=== PATIENT | male | born 1940 | race Caucasian/White ===

== ENCOUNTER 2017-05-11 17:23 | Emergency (ER) | payer MEDICARE ==
--- NOTE | 2017-05-11 17:44 | ER Document Report ---
ED Fall - General Chief Complaint: Fall Stated Complaint: FALL Time Seen by Provider: 05/11/17 17:40 Mode of Arrival: Stretcher Information source: Patient, Emergency Med Personnel - [facility] Patient complains to provider of: Recurrent falls Where: Home Context: Tripped Associated symptoms: None Quality of pain: No pain Notes: Patient is a 77-year-old male brought to the emergency room by EMS for frequent falls, apparently patient and moved down from [place] 2 months ago, because they thought that they would have more assistance with care at home, however it is reported by EMS that the is concerned that patient keeps falling at home and they do not have any in-home services to assist, and she is unsure whether she will be available to care for patient at home in the long- term, patient has a history of Alzheimer's disease so detailed information is difficult to obtain from him, however he denies any pain complaints at time of my initial evaluation, and I see no signs of any obvious serious trauma Past Medical History - General Information source: Patient - Social History Smoking Status: Unknown if Ever Smoked Family History: Reviewed & Not Pertinent Review of Systems - Review of Systems Constitutional: No symptoms reported EENT: No symptoms reported Cardiovascular: No symptoms reported Respiratory: No symptoms reported Gastrointestinal: No symptoms reported Genitourinary: No symptoms reported Male Genitourinary: No symptoms reported Musculoskeletal: No symptoms reported Skin: No symptoms reported Hematologic/Lymphatic: No symptoms reported Neurological/Psychological: No symptoms reported -: Yes All other systems reviewed and negative Physical Exam - Vital signs Interpretation: Normal - General General appearance: Appears well, Alert - HEENT Head: Normocephalic, Atraumatic Eyes: Normal Pupils: PERRL - Respiratory Respiratory status: No respiratory distress Chest status: Nontender Breath sounds: Normal Chest palpation: Normal - Cardiovascular Rhythm: Regular Heart sounds: Normal auscultation Murmur: No - Abdominal Inspection: Normal Distension: No distension Bowel sounds: Normal Tenderness: Nontender Organomegaly: No organomegaly - Back Back: Normal, Nontender - Extremities General upper extremity: Normal inspection, Nontender, Normal color, Normal ROM , Normal temperature General lower extremity: Normal inspection, Nontender, Normal color, Normal ROM , Normal temperature, Normal weight bearing. No: Mele's sign - Neurological Neuro grossly intact: Yes Cognition: Normal Orientation: AAOx4 Abdi Coma Scale Eye Opening: Spontaneous [place] Coma Scale Verbal: Oriented [place] Coma Scale Motor: Obeys Commands Abdi Coma Scale Total: 15 Speech: Normal Motor strength normal: LUE, RUE, LLE, RLE Sensory: Normal - Psychological Associated symptoms: Normal affect, Normal mood - Skin Skin Temperature: Warm Skin Moisture: Dry Skin Color: Normal Course - Re-evaluation Re-evalutation: 05/11/17 23:07 Patient has evidence of hyperglycemia on lab work, otherwise completely normal lab and physical exam findings, as patient does not meet any criteria for admission to the hospital at this point in time, therefore transport arrangements will be made for him to return home, with instructions to follow- up with primary care provider for assistance with either home health nurse or placement in a care facility if family is unable to care for him at home, I did also provide him with information to contact our social work nurse for assistance with this and made a referral to the social work office to call patients how and provide assistance with support services - Laboratory Result Diagrams: 05/11/17 18:15 05/11/17 18:15 Laboratory results interpreted by me: 05/11/17 05/11/17 05/11/17 18:15 19:16 19:43 ABG pO2 68.3 L ABG HCO3 26.5 H ABG Total CO2 27.8 H ABG O2 Saturation 93.8 L Glucose 371 H Urine Glucose (UA) >=500 H - Diagnostic Test Radiology reviewed: Image reviewed, Reports reviewed - EKG Interpretation by Me EKG shows normal: Sinus rhythm Rate: Normal Rhythm: NSR Discharge - Discharge Clinical Impression: Frequent falls, Hyperglycemia Condition: Stable Disposition: HOME, SELF-CARE Instructions: Hyperglycemia ([facility]) Additional Instructions: Follow up with your primary care provider in one to 2 days. Return to the emergency room immediately if symptoms worsen or any additional concerns. If patient is unable to be cared for properly at home environment then you should follow-up with your primary care provider and requested a referral be made to assisted living or nursing home facility for further care. The emergency room is unable to make such referrals or requests for you. If you should require assistance with this process you can call our social work nurse oYny Donaldson at [phone].
[2017-05-11 18:31] LABS: ABSOLUTE BASOPHILS # (AUTO) 0.1 10^3/uL (0.0-0.2); ABSOLUTE EOSINOPHILS # (AUTO) 0.1 10^3/uL (0.0-0.6); ABSOLUTE LYMPHOCYTES (AUTO) 1.9 10^3/uL (0.5-4.7); ABSOLUTE MONOCYTES (AUTO) 0.5 10^3/uL (0.1-1.4); ABSOLUTE NEUT (AUTO) 3.4 10^3/uL (1.7-8.2); BASOPHILS % (AUTO) 1.1 % (0-2); EOSINOPHILS % (AUTO) 1.9 % (0-6); HEMATOCRIT 41.5 % (37.9-51.0); HEMOGLOBIN 14.2 g/dL (13.5-17.0); HGB HCT DIFFERENCE 1.1; LYMPHOCYTES % (AUTO) 31.2 % (13-45); MEAN CORPUSCULAR HEMOGLOBIN 32.5 pg (27.0-33.4); MEAN CORPUSCULAR HGB CONC 34.2 g/dL (32.0-36.0); MEAN CORPUSCULAR VOLUME 95 fl (80-97); RED BLOOD COUNT 4.36 10^6/uL (4.35-5.55); RED CELL DISTRIBUTION WIDTH 13.3 % (11.5-14.0); SEGMENTED NEUTROPHILS % (AUTO) 56.8 % (42-78); WHITE BLOOD COUNT 5.9 10^3/uL (4.0-10.5)
--- NOTE | 2017-05-11 18:33 | RADIOLOGY REPORT (SQ) ---
EXAM DESCRIPTION: CHEST PA/LAT COMPLETED DATE/TIME: 05/11/2017 6:12 pm REASON FOR STUDY: fall COMPARISON: None. EXAM PARAMETERS: NUMBER OF VIEWS: two views TECHNIQUE: Digital Frontal and Lateral radiographic views of the chest acquired. RADIATION DOSE: NA LIMITATIONS: none FINDINGS: LUNGS AND PLEURA: No opacities, masses or pneumothorax. No pleural effusion. MEDIASTINUM AND HILAR STRUCTURES: No masses or contour abnormalities. HEART AND VASCULAR STRUCTURES: Heart normal size. No evidence for failure. BONES: No acute findings. HARDWARE: Sternotomy wires. Surgical clips. OTHER: No other significant finding. IMPRESSION: NO SIGNIFICANT RADIOGRAPHIC FINDING IN THE CHEST. TECHNICAL DOCUMENTATION: JOB ID: [id number] [employer]- All Rights Reserved
[2017-05-11 18:56] LABS: ALANINE AMINOTRANSFERASE 36 U/L (21-72); ALBUMIN 4.1 g/dL (3.5-5.0); ALKALINE PHOSPHATASE 65 U/L (38-126); ANION GAP 11 (5-19); ASPARTATE AMINO TRANSFERASE 27 U/L (17-59); BILIRUBIN,DIRECT 0.3 mg/dL (0.0-0.4); BILIRUBIN,TOTAL 0.6 mg/dL (0.2-1.3); BLOOD UREA NITROGEN 17 mg/dL (7-20); CALCIUM 9.6 mg/dL (8.4-10.2); CARBON DIOXIDE 30 mmol/L (22-30); CHLORIDE 98 mmol/L (98-107); CREATININE RESULT 0.78 mg/dL (0.52-1.25); GLUCOSE 371 mg/dL (75-110); POTASSIUM 4.7 mmol/L (3.6-5.0); SODIUM 138.5 mmol/L (137-145)
[2017-05-11] MEDS ORDERED: NORMAL SALINE 1000 ML 1,000 ML IV PRN (19:01)
[2017-05-11 19:49] LABS: APPEARANCE,URINE CLEAR; BILIRUBIN,URINE NEGATIVE (NEGATIVE); GLUCOSE, URINE >=500 mg/dL (NEGATIVE); KETONES,URINE NEGATIVE (NEGATIVE); LEUKOCYTE ESTERASE,URINE NEGATIVE (NEGATIVE); NITRITE,URINE NEGATIVE (NEGATIVE); PROTEIN,URINE NEGATIVE (NEGATIVE); URINE SPECIFIC GRAVITY 1.029; UROBILINOGEN,URINE NEGATIVE mg/dL (<2.0)
[2017-05-11 20:06] LABS: ARTERIAL BLOOD BASE EXCESS 1.6 mmol/L; ARTERIAL BLOOD O2 SATURATION 93.8 % (94-98)
--- NOTE | 2017-05-11 23:20 | EKG REPORT ---
SEVERITY:- BORDERLINE ECG - SINUS RHYTHM SHORT ME INTERVAL, ACCELERATED AV CONDUCTION LEFT AXIS DEVIATION LOW VOLTAGE IN FRONTAL LEADS : Confirmed by: Malcom Tee 11-May-2017 23:19:28
[2017-05-12 00:01] VITALS: BP 132/70
== END 2017-05-11 22:21 | disposition home or self-care (01) ==
LOC: ER 17:23
DX: R73.9 Hyperglycemia, unspecified (principal); W19.XXXA Unspecified fall, initial encounter; Z91.81 History of falling; G30.9 Alzheimer's disease, unspecified; F02.80 Dementia in other diseases classified elsewhere, unspecified severity, without behavioral disturbance, psychotic disturbance, mood disturbance, and anxiety
CPT/HCPCS: 93005; 99284; 96360; 82803; 85025; 80053; 81001; 71020; 93010; J7030

== ENCOUNTER 2017-05-13 15:56 | Emergency (ER) | payer MEDICARE ==
[2017-05-13 17:25] LABS: ABSOLUTE BASOPHILS # (AUTO) 0.1 10^3/uL (0.0-0.2); ABSOLUTE EOSINOPHILS # (AUTO) 0.1 10^3/uL (0.0-0.6); ABSOLUTE LYMPHOCYTES (AUTO) 1.8 10^3/uL (0.5-4.7); ABSOLUTE MONOCYTES (AUTO) 0.5 10^3/uL (0.1-1.4); ABSOLUTE NEUT (AUTO) 3.6 10^3/uL (1.7-8.2); BASOPHILS % (AUTO) 1.2 % (0-2); EOSINOPHILS % (AUTO) 1.4 % (0-6); HEMATOCRIT 44.2 % (37.9-51.0); HEMOGLOBIN 15.2 g/dL (13.5-17.0); HGB HCT DIFFERENCE 1.4; LYMPHOCYTES % (AUTO) 29.3 % (13-45); MEAN CORPUSCULAR HEMOGLOBIN 32.2 pg (27.0-33.4); MEAN CORPUSCULAR HGB CONC 34.3 g/dL (32.0-36.0); MEAN CORPUSCULAR VOLUME 94 fl (80-97); MONOCYTES % (AUTO) 8.5 % (3-13); RED BLOOD COUNT 4.71 10^6/uL (4.35-5.55); RED CELL DISTRIBUTION WIDTH 13.4 % (11.5-14.0); SEGMENTED NEUTROPHILS % (AUTO) 59.6 % (42-78)
[2017-05-13 17:32] LABS: VENOUS BLOOD BASE EXCESS 1.4 mmol/L; VENOUS BLOOD HCO3 25.3 mmol/L (20-32); VENOUS BLOOD PCO2 37.9 mmHg (35-63); VENOUS BLOOD PH 7.44 (7.30-7.42)
[2017-05-13 17:49] LABS: ANION GAP 14 (5-19); BLOOD UREA NITROGEN 14 mg/dL (7-20); CARBON DIOXIDE 28 mmol/L (22-30); CHLORIDE 97 mmol/L (98-107); CREATININE RESULT 0.84 mg/dL (0.52-1.25); GLUCOSE 370 mg/dL (75-110); POTASSIUM 4.8 mmol/L (3.6-5.0); SODIUM 138.8 mmol/L (137-145)
[2017-05-13] MEDS ORDERED: LORAZEPAM 1 MG TABLET PO ONE (18:20)
--- NOTE | 2017-05-13 18:20 | ER Document Report ---
ED General - General Chief Complaint: Other Stated Complaint: ALTERED MENTAL STATUS Time Seen by Provider: 05/13/17 16:08 TRAVEL OUTSIDE OF THE U.S. IN LAST 30 DAYS: No - HPI Patient complains to provider of: Dementia Notes: Patient was brought in for further evaluation of dementia. According to EMS patient has a history of dementia and became slightly combative with his today. Patient otherwise is confused at bedside states patient is otherwise in his normal state states that his been more difficult for her to handle him at home states that today patient did become aggressive with her however did not assault her. states that she is been working with PCP to place the patient. Our social work team is already been involved and notified. Patient otherwise was not compliant with his diabetic medication today does have elevated blood sugar. He has no complaints otherwise delightfully confused. Patient easily directed back to his bed whenever he walks out. - Related Data Allergies/Adverse Reactions: No Known Allergies Allergy (Unverified 05/13/17 16:37) Past Medical History - Social History Smoking Status: Unknown if Ever Smoked Chew tobacco use (# tins/day): No Frequency of alcohol use: None Drug Abuse: None Family History: Reviewed & Not Pertinent Patient has suicidal ideation: No Patient has homicidal ideation: No - Past Medical History Cardiac Medical History: Reports: Hx Hypercholesterolemia, Hx Hypertension Endocrine Medical History: Reports: Hx Diabetes Mellitus Type 2 Renal/ Medical History: Denies: Hx Peritoneal Dialysis Physical Exam - Vital signs Vitals: Temp Pulse Resp BP Pulse Ox 98.3 F 79 16 142/83 H 94 05/13/17 16:04 05/13/17 16:04 05/13/17 16:04 05/13/17 16:04 05/13/17 16:04 Interpretation: Normal - General General appearance: Appears well, Alert - HEENT Head: Normocephalic, Atraumatic Eyes: Normal Pupils: PERRL - Respiratory Respiratory status: No respiratory distress Chest status: Nontender Breath sounds: Normal Chest palpation: Normal - Cardiovascular Rhythm: Regular Heart sounds: Normal auscultation Murmur: No - Abdominal Inspection: Normal Distension: No distension Bowel sounds: Normal Tenderness: Nontender Organomegaly: No organomegaly - Back Back: Normal, Nontender - Extremities General upper extremity: Normal inspection, Nontender, Normal color, Normal ROM , Normal temperature General lower extremity: Normal inspection, Nontender, Normal color, Normal ROM , Normal temperature, Normal weight bearing. No: Mele's sign - Neurological Neuro grossly intact: Yes Cognition: Confused Motor strength normal: LUE, RUE, LLE, RLE Sensory: Normal - Psychological Associated symptoms: Normal affect, Normal mood - Skin Skin Temperature: Warm Skin Moisture: Dry Skin Color: Normal Course - Re-evaluation Re-evalutation: 05/13/17 21:08 Our social work team has been in contact with the patient and also the contact with the patient's PCP. They are currently working on placement for the patient. Patient examination other than showing confusion does not reveal any critical pathology. Patient lab work performed to make sure that the patient was not any signs of DKA or metabolic acidosis which was negative. Patient's was instructed for him to continue his home medications return to ER symptoms worsen. States that he ran out of his Ativan therefore I will give him a dose of Ativan to take when he arrives home. - Vital Signs Vital signs: Temp Pulse Resp BP Pulse Ox 97.9 F 83 16 111/65 96 05/13/17 18:30 05/13/17 18:30 05/13/17 18:30 05/13/17 18:36 05/13/17 18:30 - Laboratory Result Diagrams: 05/13/17 17:00 05/13/17 17:00 Laboratory results interpreted by me: 05/13/17 05/13/17 17:00 17:00 VBG pH 7.44 H Chloride 97 L Glucose 370 H Discharge - Discharge Clinical Impression: Hyperglycemia Dementia Qualifiers: Dementia type: unspecified type Dementia behavioral disturbance: without behavioral disturbance Qualified Code(s): F03.90 - Unspecified dementia without behavioral disturbance Condition: Good Disposition: HOME, SELF-CARE Instructions: Dementia ([facility]) Additional Instructions: Laboratory studies at this time does not show any signs of infection or other illness. Please make sure he follow-up with your primary care provider for further evaluation and possible placement to a fci. Return to ER for any concerns. Referrals: VALORIE SHANE, [facility] [Primary Care Provider] - Follow up as needed
[2017-05-13 18:37] VITALS: BP 111/65
== END 2017-05-13 18:37 | disposition home or self-care (01) ==
LOC: ER 15:56
DX: E11.65 Type 2 diabetes mellitus with hyperglycemia (principal); F03.90 Unspecified dementia, unspecified severity, without behavioral disturbance, psychotic disturbance, mood disturbance, and anxiety; I10 Essential (primary) hypertension; E78.00 Pure hypercholesterolemia, unspecified
CPT/HCPCS: 99285; 36415; 85025; 80048; 82803; A9270

== ENCOUNTER 2017-05-17 18:43 | Emergency (ER) | payer MEDICARE ==
--- NOTE | 2017-05-17 19:16 | ER Document Report ---
ED General - General Stated Complaint: FALL, NO COMPLAINTS Time Seen by Provider: 05/17/17 19:10 Mode of Arrival: Medic Information source: Emergency Med Personnel Cannot obtain history due to: Dementia Notes: 77 yr old male hx of dementia presents after a fall. It is noted patient has been here with similar complaints, had workup which was negative yesterday. Pt denies any complaints at all. It appears to be a social issue that our dc team has already been involved with TRAVEL OUTSIDE OF THE U.S. IN LAST 30 DAYS: No - HPI Onset: Other Onset/Duration: Intermittent Quality of pain: No pain Severity: None Pain Level: Denies Associated symptoms: Other Exacerbated by: Denies Relieved by: Denies Similar symptoms previously: Yes Recently seen / treated by doctor: Yes - Related Data Allergies/Adverse Reactions: No Known Allergies Allergy (Unverified 05/13/17 16:37) Past Medical History - General Cannot obtain history due to: Dementia - Social History Smoking Status: Never Smoker Cigarette use (# per day): No Chew tobacco use (# tins/day): No Smoking Education Provided: No Family History: Reviewed & Not Pertinent - Past Medical History Cardiac Medical History: Reports: Hx Hypercholesterolemia, Hx Hypertension Endocrine Medical History: Reports: Hx Diabetes Mellitus Type 2 Renal/ Medical History: Denies: Hx Peritoneal Dialysis Review of Systems - Review of Systems Notes: PHYSICAL EXAMINATION: GENERAL: Well-appearing, well-nourished and in no acute distress. HEAD: Atraumatic, normocephalic. EYES: Pupils equal round and reactive to light, extraocular movements intact, sclera anicteric, conjunctiva are normal. ENT: Nares patent, oropharynx clear without exudates. Moist mucous membranes. NECK: Normal range of motion, supple without lymphadenopathy LUNGS: Breath sounds clear to auscultation bilaterally and equal. No wheezes rales or rhonchi. HEART: Regular rate and rhythm without murmurs ABDOMEN: Soft, nontender, nondistended abdomen. No guarding, no rebound. No masses appreciated. Musculoskeletal: Normal range of motion, no pitting or edema. No cyanosis. NEUROLOGICAL: Cranial nerves grossly intact. Normal speech, normal gait. Normal sensory, motor exams Alert only to person PSYCH: Normal mood, normal affect. SKIN: contusion left knee -: Yes ROS unobtainable due to patient's medical condition Physical Exam - Vital signs Vitals: Temp Pulse BP Pulse Ox 98.0 F 89 119/66 81 L 05/17/17 19:01 05/17/17 19:01 05/17/17 19:01 05/17/17 19:01 Course - Re-evaluation Re-evalutation: 05/17/17 20:59 Patient blood sugar is noted to be 346, this appears to be around his baseline, is not in diabetic ketoacidosis, he medically is well however does obviously have dementia which makes taking care of him difficult at home, 05/18/17 02:26 It appears patient is not being let to go back home by his . She refuses to answer the phone and has already told staff that she refuses to let the patient come back He has been given medication for agitation - Vital Signs Vital signs: Temp Pulse Resp BP Pulse Ox 98.0 F 76 20 114/71 94 05/17/17 19:01 05/17/17 23:59 05/17/17 23:59 05/17/17 23:59 05/17/17 23:59 - Laboratory Result Diagrams: 05/17/17 19:52 05/17/17 19:52 Laboratory results interpreted by me: 05/17/17 19:52 Sodium 136.5 L Chloride 97 L Glucose 346 H Discharge - Discharge Clinical Impression: Skin tear, Frequent falls Dementia Qualifiers: Dementia type: unspecified type Dementia behavioral disturbance: with behavioral disturbance Qualified Code(s): F03.91 - Unspecified dementia with behavioral disturbance Condition: Stable Disposition: HOME, SELF-CARE Additional Instructions: Please follow-up with your primary care physician for further evaluation and return immediately if there are any other concerns
[2017-05-17 20:02] LABS: ABSOLUTE EOSINOPHILS # (AUTO) 0.1 10^3/uL (0.0-0.6); ABSOLUTE LYMPHOCYTES (AUTO) 1.8 10^3/uL (0.5-4.7); ABSOLUTE MONOCYTES (AUTO) 0.6 10^3/uL (0.1-1.4); ABSOLUTE NEUT (AUTO) 3.4 10^3/uL (1.7-8.2); BASOPHILS % (AUTO) 0.7 % (0-2); EOSINOPHILS % (AUTO) 2.1 % (0-6); HEMATOCRIT 43.2 % (37.9-51.0); HEMOGLOBIN 14.8 g/dL (13.5-17.0); HGB HCT DIFFERENCE 1.2; LYMPHOCYTES % (AUTO) 30.4 % (13-45); MEAN CORPUSCULAR HEMOGLOBIN 32.6 pg (27.0-33.4); MEAN CORPUSCULAR HGB CONC 34.4 g/dL (32.0-36.0); MEAN CORPUSCULAR VOLUME 95 fl (80-97); RED BLOOD COUNT 4.55 10^6/uL (4.35-5.55); RED CELL DISTRIBUTION WIDTH 13.3 % (11.5-14.0); SEGMENTED NEUTROPHILS % (AUTO) 56.8 % (42-78)
[2017-05-17 20:25] LABS: ALANINE AMINOTRANSFERASE 34 U/L (21-72); ALBUMIN 4.2 g/dL (3.5-5.0); ALKALINE PHOSPHATASE 72 U/L (38-126); ANION GAP 12 (5-19); ASPARTATE AMINO TRANSFERASE 25 U/L (17-59); BILIRUBIN,DIRECT 0.3 mg/dL (0.0-0.4); BILIRUBIN,TOTAL 0.7 mg/dL (0.2-1.3); BLOOD UREA NITROGEN 15 mg/dL (7-20); CALCIUM 9.5 mg/dL (8.4-10.2); CARBON DIOXIDE 28 mmol/L (22-30); CHLORIDE 97 mmol/L (98-107); CREATININE RESULT 0.89 mg/dL (0.52-1.25); GLUCOSE 346 mg/dL (75-110); POTASSIUM 4.2 mmol/L (3.6-5.0); SODIUM 136.5 mmol/L (137-145)
[2017-05-17] MEDS ORDERED: HALOPERIDOL 5 MG TABLET PO ONE (23:48)
[2017-05-17] MEDS ORDERED: INSULIN REG, HUMAN 100 UNIT/ML 3 ML VIAL (PYX) SUBCUT ONE (23:53)
[2017-05-18] MEDS ORDERED: OLANZAPINE 5 MG TABLET PO ONE (01:03)
[2017-05-18] MEDS ORDERED: LORAZEPAM 1 MG TABLET PO ONE (03:57)
[2017-05-18 04:15] LABS: APPEARANCE,URINE CLEAR; BILIRUBIN,URINE NEGATIVE (NEGATIVE); GLUCOSE, URINE >=500 mg/dL (NEGATIVE); KETONES,URINE TRACE mg/dL (NEGATIVE); LEUKOCYTE ESTERASE,URINE NEGATIVE (NEGATIVE); NITRITE,URINE NEGATIVE (NEGATIVE); PROTEIN,URINE NEGATIVE (NEGATIVE); URINE SPECIFIC GRAVITY 1.012; UROBILINOGEN,URINE NEGATIVE mg/dL (<2.0)
--- NOTE | 2017-05-18 09:42 | ER Document Report ---
Doctor's Note Notes: 05/18/17 09:41 Medical rounds: Chart reviewed and patient interviewed briefly. Vital signs are satisfactory. Laboratory values are satisfactory. Patient is alert, somewhat confused but in no apparent distress. He denies any particular complaints. He is medically stable pending psychosocial evaluation and placement.
[2017-05-18 16:56] VITALS: BP 112/60
== END 2017-05-18 17:15 | disposition home or self-care (01) ==
LOC: ER 18:43
DX: F03.91 Unspecified dementia, unspecified severity, with behavioral disturbance (principal); W19.XXXA Unspecified fall, initial encounter; Z91.81 History of falling
CPT/HCPCS: 99284; 36415; 82962; 85025; 80053; 81001; A9270 ×4; J1815

== ENCOUNTER 2017-05-19 15:36 | Emergency (ER) | payer MEDICARE ==
[2017-05-19] MEDS ORDERED: NORMAL SALINE 1000 ML 1,000 ML IV ONE (16:04)
--- NOTE | 2017-05-19 16:13 | ER Document Report ---
ED Fall - General Mode of Arrival: Medic Information source: Patient, Emergency Med Personnel, Outside Facility Records Cannot obtain history due to: Dementia TRAVEL OUTSIDE OF THE U.S. IN LAST 30 DAYS: No - HPI Patient complains to provider of: Fall Occurred: This afternoon Associated symptoms: Other - see notes above <MIKY SHELBY - Last Filed: 05/19/17 17:33> <NYDIA BRADLEY - Last Filed: 05/19/17 21:25> <MARLON MAURO - Last Filed: 05/20/17 16:25> - General Stated Complaint: ALTERED MENTAL STATUS Time Seen by Provider: 05/19/17 15:44 Notes: 77 year old male with history of hyperlipidemia, diabetes mellitus, dementia, and history of falls presents to the ED via EMS after suffering a fall earlier this afternoon. EMS reports that they were called to the house, but the took the patient to his primary care clinic in [place] who proceeded to call EMS. Patient's initial blood pressure was 70/40, was given 500 mLs of saline, and improved to 108/60. Blg was 400 per EMS. Patient has been seen in the ED on 05/11, 05/13, and 05/17 secondary to falls. Patient's is having difficulty caring for the patient and would like the patient to be put into an assisted living home. (MIKY SHELBY) The emergency room high school social science teacher has been involved in his care for the last several days. They are trying to find placement for this patient. Arrangements were made for home health to come to the house. EMS was called to the home earlier today and the patient was not transported. Patient was then taken to the doctor's office where blood sugar was found to be 400 and a blood pressure was found to be a little low. EMS gave 500 mL's of normal saline in route and the pressure did come up. He was given additional IV fluids here in the emergency room. Patient does require restraints as he will climb out of the bed and fall down. His is unable to control him at home. Later history revealed that the patient actually moved here probably in September of this year from the [facility]. He has been seen regularly by the community paramedics. They have been encouraging the spouse to work with a primary care provider for placement for some time but she has not made any effort to do that by the history I was told. Again, now the high school social science teacher nurse in the emergency room is working on finding this man long-term placement. She thinks he may have a facility locally that is agreeable to take him in the next 1-2 days. He will remain in the emergency room for the time being. (NYDIA BRADLEY) - Related data Allergies/Adverse Reactions: No Known Allergies Allergy (Unverified 05/13/17 16:37) Past Medical History - General Information source: [facility] Records - Social History Smoking Status: Unknown if Ever Smoked Family History: Reviewed & Not Pertinent - Past Medical History Cardiac Medical History: Reports: Hx Hypercholesterolemia, Hx Hypertension Endocrine Medical History: Reports: Hx Diabetes Mellitus Type 2 Renal/ Medical History: Denies: Hx Peritoneal Dialysis Psychiatric Medical History: Reports: Hx Dementia <MIKY SHELBY - Last Filed: 05/19/17 17:33> Review of Systems - Review of Systems -: Yes ROS unobtainable due to patient's medical condition - A comprehensive ROS is unobtainable secondary to the patient's dementia. Musculoskeletal: See HPI, Other - falls <MIKY SHELBY - Last Filed: 05/19/17 17:33> Physical Exam - General General appearance: Alert In distress: None - HEENT Head: Normocephalic, Atraumatic Eyes: Normal Extraocular movements intact: Yes Pupils: PERRL - Respiratory Respiratory status: No respiratory distress Breath sounds: Normal - Cardiovascular Rhythm: Regular Heart sounds: Normal auscultation - Abdominal Inspection: Normal - Back Back: Normal - Extremities General upper extremity: Normal inspection, Normal ROM General lower extremity: Normal ROM. No: Normal inspection - see knee exam below Knee: Abrasion - left anterior medial inferior knee from a previous fall. No: Normal - Neurological Neuro grossly intact: Yes - Psychological Associated symptoms: Normal affect, Normal mood - Skin Skin Temperature: Warm Skin Moisture: Dry Skin Color: Normal Skin irregularity: other - see knee exam above <MIKY SHELBY - Last Filed: 05/19/17 17:33> - Vital signs Vitals: Temp Pulse Resp BP Pulse Ox 98.5 F 80 18 103/76 100 05/19/17 15:46 05/19/17 15:46 05/19/17 15:46 05/19/17 15:46 05/19/17 15:46 Course - Laboratory Result Diagrams: 05/19/17 16:15 05/19/17 16:15 <MIKY SHELBY - Last Filed: 05/19/17 17:33> - Laboratory Result Diagrams: 05/19/17 16:15 05/19/17 16:15 <NYDIA BRADLEY - Last Filed: 05/19/17 21:25> - Laboratory Result Diagrams: 05/19/17 16:15 05/19/17 16:15 <MARLON MAURO - Last Filed: 05/20/17 16:25> - Re-evaluation Re-evalutation: 05/19/17 19:17 The patient's blood sugars continue to trend downward, his most recent Accu- Chek is 247. He is going to eat a meal at this time so he will be given a small dose of subcutaneous insulin. It is unknown if he has more insulin on board from before coming in, so we will stay conservative with insulin treatment at this time. 05/19/17 21:25 Medication orders were put in for the patient for all his regular medications except his Lantus and his Avapro. The blood pressure medicine will be held for now due to his blood pressure remaining somewhat low. He will be put on a lispro sliding scale. (NYDIA BRADLEY) - Vital Signs Vital signs: Temp Pulse Resp BP Pulse Ox 97.9 F 82 14 97/65 L 92 05/20/17 15:46 05/20/17 15:46 05/20/17 15:46 05/20/17 15:46 05/20/17 15:46 - Laboratory Laboratory results interpreted by me: 05/19/17 05/19/17 05/19/17 16:15 16:15 16:20 BUN 21 H Est GFR (Non-Af Amer) 58 L Glucose 309 H POC Glucose Hemoglobin A1c % 12.0 H Urine Protein 100 H Urine Glucose (UA) >=500 H Urine Ketones 20 H Urine Urobilinogen 2.0 H 05/19/17 05/19/17 05/20/17 18:56 21:37 07:31 BUN Est GFR (Non-Af Amer) Glucose POC Glucose 247 H 346 H 221 H Hemoglobin A1c % Urine Protein Urine Glucose (UA) Urine Ketones Urine Urobilinogen 05/20/17 11:15 BUN Est GFR (Non-Af Amer) Glucose POC Glucose 257 H Hemoglobin A1c % Urine Protein Urine Glucose (UA) Urine Ketones Urine Urobilinogen Discharge <MIKY SHELBY - Last Filed: 05/19/17 17:33> <NYDIA BRADLEY - Last Filed: 05/19/17 21:25> <MARLON MAURO - Last Filed: 05/20/17 16:25> - Discharge Clinical Impression: Poorly controlled diabetes mellitus, Frequent falls Dementia Qualifiers: Dementia type: unspecified type Dementia behavioral disturbance: with behavioral disturbance Qualified Code(s): F03.91 - Unspecified dementia with behavioral disturbance Hyperglycemia due to type 2 diabetes mellitus Qualifiers: Diabetes mellitus termite exterminator helper insulin use: with termite exterminator helper use Qualified Code(s): E11.65 - Type 2 diabetes mellitus with hyperglycemia Hypotension Qualifiers: Hypotension type: unspecified hypotension type Qualified Code(s): I95.9 - Hypotension, unspecified Condition: Stable Disposition: HOME, SELF-CARE Additional Instructions: Please make sure that you return immediately with any fevers, increased confusion, falls, vomiting, complains of pain, or any other acute problems. Please continue to work with home health and the high school social science teacher that we have provided to find long-term placement. Please make sure that you keep a close watch on the patient's blood sugar. Scribe Attestation: 05/19/17 17:38 I personally performed the services described in the documentation, reviewed and edited the documentation which was dictated to the scribe in my presence, and it accurately records my words and actions. (NYDIA BRADLEY) Scribe Documentation - Scribe Written by Marlin:: Marlin Jeffries, 05/19/2017 1615 acting as scribe for :: Warren <MIKY SHELBY - Last Filed: 05/19/17 17:33>
[2017-05-19 16:37] LABS: ABSOLUTE BASOPHILS # (AUTO) 0.1 10^3/uL (0.0-0.2); ABSOLUTE EOSINOPHILS # (AUTO) 0.1 10^3/uL (0.0-0.6); ABSOLUTE LYMPHOCYTES (AUTO) 1.3 10^3/uL (0.5-4.7); ABSOLUTE MONOCYTES (AUTO) 0.5 10^3/uL (0.1-1.4); ABSOLUTE NEUT (AUTO) 3.2 10^3/uL (1.7-8.2); BASOPHILS % (AUTO) 1.2 % (0-2); EOSINOPHILS % (AUTO) 2.1 % (0-6); HEMATOCRIT 43.3 % (37.9-51.0); HEMOGLOBIN 14.7 g/dL (13.5-17.0); HGB HCT DIFFERENCE 0.8; LYMPHOCYTES % (AUTO) 25.7 % (13-45); MEAN CORPUSCULAR HEMOGLOBIN 32.3 pg (27.0-33.4); MEAN CORPUSCULAR VOLUME 95 fl (80-97); RED BLOOD COUNT 4.55 10^6/uL (4.35-5.55); RED CELL DISTRIBUTION WIDTH 13.5 % (11.5-14.0); WHITE BLOOD COUNT 5.2 10^3/uL (4.0-10.5)
[2017-05-19 16:48] LABS: ALANINE AMINOTRANSFERASE 33 U/L (21-72); ALBUMIN 3.8 g/dL (3.5-5.0); ALKALINE PHOSPHATASE 65 U/L (38-126); ANION GAP 16 (5-19); ASPARTATE AMINO TRANSFERASE 26 U/L (17-59); BILIRUBIN,DIRECT 0.4 mg/dL (0.0-0.4); BLOOD UREA NITROGEN 21 mg/dL (7-20); CALCIUM 9.4 mg/dL (8.4-10.2); CARBON DIOXIDE 24 mmol/L (22-30); CHLORIDE 101 mmol/L (98-107); CREATININE RESULT 1.22 mg/dL (0.52-1.25); GLUCOSE 309 mg/dL (75-110); TOTAL PROTEIN 6.5 g/dL (6.3-8.2)
[2017-05-19 16:53] LABS: APPEARANCE,URINE CLOUDY; BILIRUBIN,URINE NEGATIVE (NEGATIVE); GLUCOSE, URINE >=500 mg/dL (NEGATIVE); KETONES,URINE 20 mg/dL (NEGATIVE); LEUKOCYTE ESTERASE,URINE NEGATIVE (NEGATIVE); NITRITE,URINE NEGATIVE (NEGATIVE); PROTEIN,URINE 100 mg/dL (NEGATIVE); URINE SPECIFIC GRAVITY 1.026
[2017-05-19] MEDS ORDERED: TUBERCULIN,PURIF.PROT.DERIV. 5 TU/0.1 ML TEST 1 ML VIAL ID ONE (18:40)
[2017-05-19] MEDS ORDERED: INSULIN REG, HUMAN 100 UNIT/ML 3 ML VIAL (PYX) SUBCUT ONE (19:17)
[2017-05-19] MEDS ORDERED: DEXTROSE 50%-WATER 25 GM/50 ML DISP.SYRIN IV PRN ×2 (21:23)
[2017-05-19] MEDS ORDERED: DEXTROSE 40% GEL 15 GM TUBE PO PRN ×2 (21:23)
[2017-05-19] MEDS ORDERED: GLUCAGON,HUMAN RECOMB 1 MG INJ IM PRN (21:23)
[2017-05-19] MEDS ORDERED: INSULIN LISPRO 100 UNIT/ML 3 ML VIAL SUBCUT PRN (21:23)
[2017-05-19] MEDS ORDERED: MEMANTINE HCL 10 MG TABLET PO SCH (21:30)
[2017-05-19] MEDS ORDERED: MEMANTINE HCL 10 MG TABLET PO ONE (22:00)
[2017-05-19] MEDS ORDERED: METFORMIN HCL 500 MG TABLET PO SCH (22:00)
[2017-05-20] MEDS ORDERED: CITALOPRAM HYDROBROMIDE 20 MG TABLET PO SCH (10:00)
[2017-05-20] MEDS ORDERED: ATORVASTATIN CALCIUM 80 MG TABLET PO SCH (10:00)
[2017-05-20] MEDS ORDERED: DONEPEZIL HCL 5 MG TABLET PO SCH (10:00)
[2017-05-20 15:52] VITALS: BP 97/65
--- NOTE | 2017-05-20 16:24 | ER Document Report ---
Doctor's Note Notes: 05/20/17 16:22 Patient presented to the emergency department secondary to some high blood glucose and his feeling uncomfortable taking care of the patient. He has been here an extended period of time with some stabilization of his blood sugars. Case management has spoken with the patient and the patient's . The patient's feels comfortable at this time taking the patient home with her. Social work will continue to work with home health that the patient already has defined long-term placement. Vital signs as recorded. Patient's states that the patient has his medications at home.
--- NOTE | 2017-05-20 17:25 | RADIOLOGY REPORT (SQ) ---
EXAM DESCRIPTION: CT HEAD WITHOUT COMPLETED DATE/TIME: 05/20/2017 5:09 pm REASON FOR STUDY: Fall; CT head COMPARISON: None. TECHNIQUE: Axial images acquired through the brain without intravenous contrast. Images reviewed wi th bone, brain and subdural windows. Images stored on PACS. All CT scanners at this facility use dose modulation, iterative reconstruction, and/or weight based d osing when appropriate to reduce radiation dose to as low as reasonably achievable (ALARA). [facility]: Dose Right [facility]: CareDose [facility]: Dose Right [facility]: Teradose 4D [facility]: Smart Technologies RADIATION DOSE: mGy. LIMITATIONS: None. FINDINGS: VENTRICLES: Normal size and contour. CEREBRUM: No masses. No hemorrhage. No midline shift. No evidence for acute infarction. Normal gra y/white matter differentiation. No areas of low density in the white matter. CEREBELLUM: No masses. No hemorrhage. No alteration of density. No evidence for acute infarction. EXTRAAXIAL SPACES: No fluid collections. No masses. ORBITS AND GLOBE: No intra- or extraconal masses. Normal contour of globe without masses. CALVARIUM: No fracture. PARANASAL SINUSES: No fluid or mucosal thickening. SOFT TISSUES: No mass or hematoma. OTHER: No other significant finding. IMPRESSION: No acute intracranial findings. EVIDENCE OF ACUTE STROKE: NO. COMMENT: Quality ID # [id number]: Final reports with documentation of one or more dose reduction techniques (e.g., Automated exposure control, adjustment of the mA and/or kV according to patient size, use of iterative reconstruction technique) TECHNICAL DOCUMENTATION: JOB ID: [id number] [place]-72 2010 [employer]- All Rights Reserved
== END 2017-05-20 18:00 | disposition home or self-care (01) ==
LOC: ER 15:36
DX: E11.65 Type 2 diabetes mellitus with hyperglycemia (principal); Z91.81 History of falling; F03.91 Unspecified dementia, unspecified severity, with behavioral disturbance; I95.9 Hypotension, unspecified
CPT/HCPCS: 99285; 96360; 51701; 36415; 82962; 85025; 80053; 81001; 83036; 70450; A9270 ×8; J3490; J7030; J1815

== ENCOUNTER 2017-05-23 18:29 | Emergency (ER) | payer MEDICARE ==
[2017-05-23 19:27] LABS: APPEARANCE,URINE SLIGHTLY-CLOUDY; BILIRUBIN,URINE NEGATIVE (NEGATIVE); GLUCOSE, URINE >=500 mg/dL (NEGATIVE); KETONES,URINE NEGATIVE (NEGATIVE); LEUKOCYTE ESTERASE,URINE NEGATIVE (NEGATIVE); NITRITE,URINE NEGATIVE (NEGATIVE); PROTEIN,URINE NEGATIVE (NEGATIVE); UROBILINOGEN,URINE NEGATIVE mg/dL (<2.0)
[2017-05-23 19:34] LABS: WBC,URINE 0-1 /HPF
[2017-05-23 19:46] LABS: ABSOLUTE BASOPHILS # (AUTO) 0.1 10^3/uL (0.0-0.2); ABSOLUTE EOSINOPHILS # (AUTO) 0.1 10^3/uL (0.0-0.6); ABSOLUTE LYMPHOCYTES (AUTO) 1.5 10^3/uL (0.5-4.7); ABSOLUTE MONOCYTES (AUTO) 0.6 10^3/uL (0.1-1.4); ABSOLUTE NEUT (AUTO) 4.7 10^3/uL (1.7-8.2); EOSINOPHILS % (AUTO) 1.8 % (0-6); HEMATOCRIT 39.7 % (37.9-51.0); HEMOGLOBIN 13.5 g/dL (13.5-17.0); HGB HCT DIFFERENCE 0.8; LYMPHOCYTES % (AUTO) 20.9 % (13-45); MEAN CORPUSCULAR HEMOGLOBIN 31.9 pg (27.0-33.4); MEAN CORPUSCULAR HGB CONC 33.9 g/dL (32.0-36.0); MEAN CORPUSCULAR VOLUME 94 fl (80-97); MONOCYTES % (AUTO) 9.1 % (3-13); RED BLOOD COUNT 4.22 10^6/uL (4.35-5.55); RED CELL DISTRIBUTION WIDTH 13.2 % (11.5-14.0); SEGMENTED NEUTROPHILS % (AUTO) 67.2 % (42-78)
--- NOTE | 2017-05-23 19:52 | ER Document Report ---
ED GI/ - General Chief Complaint: Diarrhea Stated Complaint: DIARRHEA Time Seen by Provider: 05/23/17 19:42 Notes: Patient is a 77-year-old male comes emergency department for chief complaint of diarrhea. Patient has had 2 episodes of loose stools, nonbloody. He denies abdominal pain, vomiting, he denies any difficulty eating or drinking. He denies fever. He denies any sources of pain. Patient does have dementia, is oriented to person but disoriented to location or events. Patient lives at home with his . EMS reports that they went out to the house twice a day and helped clean up the patient, after the second time requested patient be brought to the hospital. TRAVEL OUTSIDE OF THE [place] IN LAST 30 DAYS: No - Related Data Allergies/Adverse Reactions: No Known Allergies Allergy (Verified 05/23/17 18:55) Past Medical History - General Information source: Patient - Social History Smoking Status: Unknown if Ever Smoked Chew tobacco use (# tins/day): No Frequency of alcohol use: None Drug Abuse: None Lives with: Spouse/Significant other Family History: Reviewed & Not Pertinent Patient has suicidal ideation: No Patient has homicidal ideation: No - Past Medical History Cardiac Medical History: Reports: Hx Hypercholesterolemia, Hx Hypertension Endocrine Medical History: Reports: Hx Diabetes Mellitus Type 2 Renal/ Medical History: Denies: Hx Peritoneal Dialysis Psychiatric Medical History: Reports: Hx Dementia Surgical Hx: Negative - Immunizations Immunizations up to date: Yes Hx Diphtheria, Pertussis, Tetanus Vaccination: Yes Review of Systems - Review of Systems Constitutional: No symptoms reported EENT: No symptoms reported Cardiovascular: No symptoms reported Respiratory: No symptoms reported Gastrointestinal: See HPI Genitourinary: No symptoms reported Male Genitourinary: No symptoms reported Musculoskeletal: No symptoms reported Skin: No symptoms reported Hematologic/Lymphatic: No symptoms reported Neurological/Psychological: See HPI Physical Exam - Vital signs Vitals: Temp Pulse Resp BP Pulse Ox 98.8 F 75 18 96/49 L 95 05/23/17 18:46 05/23/17 18:46 05/23/17 18:46 05/23/17 18:46 05/23/17 18:46 Interpretation: Normal - General General appearance: Appears well, Alert In distress: None - HEENT Head: Normocephalic, Atraumatic Eyes: Normal Conjunctiva: Normal Extraocular movements intact: Yes Eyelashes: Normal Pupils: PERRL Nasal: Normal Mouth/Lips: Normal Mucous membranes: Normal Pharynx: Normal Neck: Normal - Respiratory Respiratory status: No respiratory distress Chest status: Nontender Breath sounds: Normal Chest palpation: Normal - Cardiovascular Rhythm: Regular. No: Tachycardia Heart sounds: Normal auscultation, S1 appreciated, S2 appreciated Murmur: No - Abdominal Inspection: Normal Distension: No distension Bowel sounds: Normal Tenderness: Nontender. No: Tender, Guarding - Back Back: Normal, Nontender. No: Tender - Extremities General upper extremity: Normal inspection, Nontender, Normal strength, Normal temperature General lower extremity: Other - Healing old contusion over the left patella, no surrounding swelling, normal range of motion, normal lower extremity examination otherwise - Neurological Cognition: Confused Orientation: Disoriented to place, Disoriented to time, Disoriented to events. No: Disoriented to person [place] Coma Scale Eye Opening: Spontaneous Abdi Coma Scale Verbal: Confused Abdi Coma Scale Motor: Obeys Commands Abdi Coma Scale Total: 14 Speech: Normal Motor strength normal: LUE, RUE, LLE, RLE Sensory: Normal - Psychological Associated symptoms: Normal affect, Normal mood - Skin Skin Temperature: Warm Skin Moisture: Dry Skin Color: Normal Course - Re-evaluation Re-evalutation: Patient smiling, soft abdomen, well-appearing on examination. He denies any current complaints. He appears to have good strength. Patient has been here almost every 2 days since 05/11/2017. CBC unremarkable, chemistry shows mild hyperglycemia but no bicarbonate and anion gap. Vital signs unremarkable. There was a reading of hypotension but I rechecked this and found it to be an error, cuff was not on the patient's arm at that time. Urinalysis shows mild dehydration, patient was given IV fluids. Patient has not had any diarrhea in several hours since he got here, only had episodes at home. 05/23/17 21:35 Called and spoke with , Martha Waterman, she states that his progressive dementia has gotten very difficult to handle, she states that she is at her wits end trying to take care of him, she has already been working with the outsole caser and tried to place him at the [facility] facility, states that they ran into a problem with this and now they are trying to place him in assisted living but have not succeeded in doing so yet. She denies any other complaints other than that he has become more confused than previously and is more difficult to care for. She asks if patient can stay at the emergency department for now so she can get some sleep and not come home until the morning. I do not have an admission criteria patient, patient is having outsole caser working with them to get placement, patient will be monitored for now, patient given snacks, he was given Ativan after he became very restless. 05/23/17 03:00 Patient sleeping peacefully, normal vitals, no concerns at this time. - Vital Signs Vital signs: Temp Pulse Resp BP Pulse Ox 98.7 F 83 17 120/60 93 05/24/17 10:50 05/24/17 10:50 05/24/17 10:50 05/24/17 10:50 05/24/17 10:50 - Laboratory Result Diagrams: 05/23/17 19:44 05/23/17 18:34 Laboratory results interpreted by me: 05/23/17 05/23/17 05/23/17 18:34 19:10 19:44 RBC 4.22 L Glucose 225 H Urine Glucose (UA) >=500 H Urine Blood SMALL H Discharge - Discharge Clinical Impression: Dementia Qualifiers: Dementia type: unspecified type Dementia behavioral disturbance: with behavioral disturbance Qualified Code(s): F03.91 - Unspecified dementia with behavioral disturbance Diarrhea Qualifiers: Diarrhea type: unspecified type Qualified Code(s): R19.7 - Diarrhea, unspecified Condition: Stable Disposition: HOME, SELF-CARE Additional Instructions: Laboratory workup and evaluation shows no concerning abnormalities. Continue to work with primary care and case management for placement. Return to the ED for any concerning or worsening symptoms - vomiting, fever, abdominal pain, black/bloody stools, etc.
[2017-05-23 20:29] LABS: ALANINE AMINOTRANSFERASE 28 U/L (21-72); ALBUMIN 3.5 g/dL (3.5-5.0); ALKALINE PHOSPHATASE 61 U/L (38-126); ANION GAP 11 (5-19); ASPARTATE AMINO TRANSFERASE 26 U/L (17-59); BILIRUBIN,DIRECT 0.3 mg/dL (0.0-0.4); BILIRUBIN,TOTAL 0.4 mg/dL (0.2-1.3); BLOOD UREA NITROGEN 16 mg/dL (7-20); CALCIUM 8.9 mg/dL (8.4-10.2); CARBON DIOXIDE 28 mmol/L (22-30); CHLORIDE 101 mmol/L (98-107); GLUCOSE 225 mg/dL (75-110); POTASSIUM 4.4 mmol/L (3.6-5.0); SODIUM 139.5 mmol/L (137-145); TOTAL PROTEIN 6.4 g/dL (6.3-8.2)
[2017-05-23] MEDS ORDERED: LORAZEPAM 1 MG TABLET PO ONE (23:40)
[2017-05-24] MEDS ORDERED: LORAZEPAM INJ 2 MG/1 ML VIAL IM ONE (00:58)
[2017-05-24 10:51] VITALS: BP 120/60
== END 2017-05-24 10:51 | disposition home or self-care (01) ==
LOC: ER 18:29
DX: R19.7 Diarrhea, unspecified (principal); F03.91 Unspecified dementia, unspecified severity, with behavioral disturbance; E86.0 Dehydration; E11.65 Type 2 diabetes mellitus with hyperglycemia; I10 Essential (primary) hypertension
CPT/HCPCS: 99284; 96372; 36415; 85025; 80053; 81001; J2060; A9270

== ENCOUNTER 2017-05-24 12:34 | Emergency (ER) | payer MEDICARE ==
[2017-05-24] MEDS ORDERED: LORAZEPAM INJ 2 MG/1 ML VIAL IV ONE (15:19)
[2017-05-24] MEDS ORDERED: HALOPERIDOL LACTATE INJ 5 MG/1 ML VIAL IM ONE (17:00)
[2017-05-24] MEDS ORDERED: DIPHENHYDRAMINE HCL 50 MG/ML VIAL IM ONE (17:02)
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
[2017-05-25 07:08] VITALS: BP 109/64
[2017-05-25] MEDS ORDERED: GLUCAGON,HUMAN RECOMB 1 MG INJ IM PRN (09:42)
[2017-05-25] MEDS ORDERED: DEXTROSE 50%-WATER 25 GM/50 ML DISP.SYRIN IV PRN ×2 (09:42)
[2017-05-25] MEDS ORDERED: DEXTROSE 40% GEL 15 GM TUBE PO PRN ×2 (09:42)
--- NOTE | 2017-05-25 09:57 | ER Document Report ---
Doctor's Note Notes: 05/25/17 09:56 77-year-old male who returns here again after a fall before even getting to the house after being discharged here for some diarrhea. Supposedly the patient's is wanting the patient placed but was having some difficulty. Patient did not receive insulin prior to arrival or here at this emergency department at this time. He was on sliding scale insulin previously. We have placed the patient on sliding scale once again and we are awaiting social work. Patient is calm and cooperative in no acute distress. Labs have been ordered. Vital signs are stable.
[2017-05-25] MEDS: INSULIN REG, HUMAN 100 UNIT/ML 3 ML VIAL (PYX) SUBCUT PRN ×2 (09:58→12:02)
[2017-05-25 11:34] LABS: ABSOLUTE BASOPHILS # (AUTO) 0.1 10^3/uL (0.0-0.2); ABSOLUTE EOSINOPHILS # (AUTO) 0.1 10^3/uL (0.0-0.6); ABSOLUTE LYMPHOCYTES (AUTO) 1.2 10^3/uL (0.5-4.7); ABSOLUTE MONOCYTES (AUTO) 0.5 10^3/uL (0.1-1.4); BASOPHILS % (AUTO) 1.1 % (0-2); EOSINOPHILS % (AUTO) 1.2 % (0-6); HEMATOCRIT 43.9 % (37.9-51.0); HEMOGLOBIN 15.3 g/dL (13.5-17.0); LYMPHOCYTES % (AUTO) 20.1 % (13-45); MEAN CORPUSCULAR HEMOGLOBIN 32.4 pg (27.0-33.4); MEAN CORPUSCULAR HGB CONC 34.8 g/dL (32.0-36.0); MEAN CORPUSCULAR VOLUME 93 fl (80-97); MONOCYTES % (AUTO) 8.8 % (3-13); RED CELL DISTRIBUTION WIDTH 13.4 % (11.5-14.0); SEGMENTED NEUTROPHILS % (AUTO) 68.8 % (42-78); WHITE BLOOD COUNT 5.9 10^3/uL (4.0-10.5)
[2017-05-25 12:01] LABS: ALANINE AMINOTRANSFERASE 36 U/L (21-72); ALBUMIN 4.1 g/dL (3.5-5.0); ALKALINE PHOSPHATASE 65 U/L (38-126); ANION GAP 13 (5-19); ASPARTATE AMINO TRANSFERASE 39 U/L (17-59); BILIRUBIN,DIRECT 0.4 mg/dL (0.0-0.4); BILIRUBIN,TOTAL 0.8 mg/dL (0.2-1.3); BLOOD UREA NITROGEN 12 mg/dL (7-20); CALCIUM 9.7 mg/dL (8.4-10.2); CARBON DIOXIDE 28 mmol/L (22-30); CHLORIDE 98 mmol/L (98-107); CREATININE RESULT 0.74 mg/dL (0.52-1.25); GLUCOSE 260 mg/dL (75-110); POTASSIUM 4.8 mmol/L (3.6-5.0); TOTAL PROTEIN 6.9 g/dL (6.3-8.2)
[2017-05-25 12:30] LABS: APPEARANCE,URINE CLEAR; BILIRUBIN,URINE NEGATIVE (NEGATIVE); GLUCOSE, URINE >=500 mg/dL (NEGATIVE); KETONES,URINE 20 mg/dL (NEGATIVE); LEUKOCYTE ESTERASE,URINE NEGATIVE (NEGATIVE); NITRITE,URINE NEGATIVE (NEGATIVE); PROTEIN,URINE NEGATIVE (NEGATIVE); URINE SPECIFIC GRAVITY 1.014; UROBILINOGEN,URINE NEGATIVE mg/dL (<2.0)
[2017-05-25 12:42] LABS: BACTERIA,URINE 1+ /HPF; RBC,URINE RARE /HPF
== END 2017-05-25 17:50 | disposition home or self-care (01) ==
LOC: ER 12:34
DX: G30.8 Other Alzheimer's disease (principal); Z91.81 History of falling; R19.7 Diarrhea, unspecified; E11.9 Type 2 diabetes mellitus without complications; Z79.4 Long term (current) use of insulin; I10 Essential (primary) hypertension; Z79.899 Other long term (current) drug therapy
CPT/HCPCS: 99285; 96372; 51701; 96374; 36415; 82962; 85025; 80053; 81001; J1200; J1630; J2060; A9270; J1815

== ENCOUNTER 2017-05-27 23:08 | Emergency (ER) | payer MEDICARE ==
--- NOTE | 2017-05-27 23:39 | ER Document Report ---
ED General - General Chief Complaint: Psych Problem Stated Complaint: MOBILITY ISSUES Time Seen by Provider: 05/27/17 23:28 Cannot obtain history due to: Dementia Notes: Patient is a 77-year-old male who presents for the eighth time since 11 May with chronic, worsening dementia and his is concerned because she cannot continue to care for him at home. Review of prior notes shows that patient has had an extensive outreach effort by community services, our social workers, as well as Adult Protective Services. Apparently the has had difficulty following through on management plans and continues to try to send the patient to the emergency department when she cannot care for him. The has been performed repeatedly that this is not appropriate and does continue to send him to the ER. The patient himself arrives today, is profoundly demented, only knows his name. He does not even know the name of his , where he is, who the president is, or what city we are in. He denies any complaints. TRAVEL OUTSIDE OF THE [place] IN LAST 30 DAYS: No - Related Data Allergies/Adverse Reactions: No Known Allergies Allergy (Verified 05/23/17 18:55) Past Medical History - General Information source: Emergency Med Personnel Cannot obtain history due to: Dementia - Social History Smoking Status: Unknown if Ever Smoked Lives with: Spouse/Significant other Family History: Reviewed & Not Pertinent Patient has suicidal ideation: No Patient has homicidal ideation: No - Past Medical History Cardiac Medical History: Reports: Hx Hypercholesterolemia, Hx Hypertension Endocrine Medical History: Reports: Hx Diabetes Mellitus Type 2 Renal/ Medical History: Denies: Hx Peritoneal Dialysis Psychiatric Medical History: Reports: Hx Dementia - Immunizations Immunizations up to date: Yes Hx Diphtheria, Pertussis, Tetanus Vaccination: Yes Review of Systems - Review of Systems Notes: Constitutional: Negative for fever. HENT: Negative for sore throat. Eyes: Negative for visual changes. Cardiovascular: Negative for chest pain. Respiratory: Negative for shortness of breath. Gastrointestinal: Negative for abdominal pain, vomiting or diarrhea. Genitourinary: Negative for dysuria. Musculoskeletal: Negative for back pain. Skin: Negative for rash. Neurological: Negative for headaches, weakness or numbness. 10 point ROS negative except as marked above and in HPI. Physical Exam - Vital signs Vitals: Temp Pulse Resp BP Pulse Ox 97.6 F 78 18 109/59 L 96 05/27/17 23:19 05/27/17 23:19 05/27/17 23:19 05/27/17 23:19 05/27/17 23:19 Interpretation: Normal Notes: PHYSICAL EXAMINATION: GENERAL: Well-appearing, well-nourished and in no acute distress. HEAD: Atraumatic, normocephalic. EYES: Pupils equal round and reactive to light, extraocular movements intact, sclera anicteric, conjunctiva are normal. ENT: nares patent, oropharynx clear without exudates. Moist mucous membranes. NECK: Normal range of motion, supple without lymphadenopathy LUNGS: Breath sounds clear to auscultation bilaterally and equal. No wheezes rales or rhonchi. HEART: Regular rate and rhythm without murmurs ABDOMEN: Soft, nontender, normoactive bowel sounds. No guarding, no rebound. No masses appreciated. EXTREMITIES: Normal range of motion, no pitting or edema. No cyanosis. NEUROLOGICAL: No focal neurological deficits. Moves all extremities spontaneously and on command. PSYCH: Oriented only to person SKIN: Warm, Dry, normal turgor, no rashes or lesions noted. Course - Re-evaluation Re-evalutation: 05/27/17 23:38 Patient presents with no complaints, no injuries, no acute medical emergency. He has severe dementia at baseline. He can not tell me the year, the president , or the name of his . Patient clearly needs to be in a long-term care facility or have in home care services. This is not a function of the emergency department. We have had the Department of Family Services as well as our social workers trying to help the extensively for long-term placement but apparently she has not followed through on her end. There is no medical indication for additional labs or imaging. Patient has had 6 sets of labs since 11 May which have been unremarkable and I do not believe there is any medical indication to repeat these studies today. A CT of his head has also been performed within the last 1 week and is also noted to be normal. The patient will be discharged back to the home. If the does resist this, the police will be contacted for attempted abandonment of an elder. - Vital Signs Vital signs: Temp Pulse Resp BP Pulse Ox 97.6 F 73 18 105/57 L 93 05/28/17 00:45 05/28/17 00:45 05/28/17 00:45 05/28/17 00:45 05/28/17 00:45 Discharge - Discharge Clinical Impression: Dementia Qualifiers: Dementia type: unspecified type Dementia behavioral disturbance: with behavioral disturbance Qualified Code(s): F03.91 - Unspecified dementia with behavioral disturbance Condition: Fair Disposition: HOME, SELF-CARE Additional Instructions: THE ED IS NOT AN OPTION FOR AREA FIELD MANAGER CARE. YOU NEED TO FOLLOW THROUGH WITH THE RESOURCES THAT HAVE BEEN PROVIDED TO GET YOUR INTO LONG-TERM CARE. CONTINUING TO SEND HIM BACK TO THE ED IS ABANDONMENT. If your develops symptoms that you are concerning for a life- threatening emergency, please return him to the ED.
[2017-05-28 00:48] VITALS: BP 105/57
== END 2017-05-28 00:35 | disposition home or self-care (01) ==
LOC: ER 23:08
DX: F03.91 Unspecified dementia, unspecified severity, with behavioral disturbance (principal); I10 Essential (primary) hypertension; E11.9 Type 2 diabetes mellitus without complications
CPT/HCPCS: 99284

== ENCOUNTER 2017-05-28 12:35 | Emergency (ER) | payer MEDICARE ==
[~2017-05-28 12:35] MED LIST: ONDANSETRON 4 MG TAB.RAPDIS PO ONE
--- NOTE | 2017-05-28 13:00 | ER Document Report ---
ED General - General Chief Complaint: Diarrhea Stated Complaint: FLU LIKE SYMPTOMS Time Seen by Provider: 05/28/17 12:35 TRAVEL OUTSIDE OF THE [place] IN LAST 30 DAYS: No - HPI Notes: 77 years old male with a history of advanced dementia Alzheimer's disease, was sent over here because of loose stools. This gentleman comes here very frequently, social workers have involved before. It appears that his finding it difficult to For him at home. No history could be obtained from him. There is no history given by EMS to the effect any vomiting. Fever chills or other constitutional symptoms. - Related Data Allergies/Adverse Reactions: No Known Allergies Allergy (Verified 05/28/17 13:28) Past Medical History - General Information source: Emergency Med Personnel - Social History Smoking Status: Former Smoker Family History: Reviewed & Not Pertinent - Past Medical History Cardiac Medical History: Reports: Hx Hypercholesterolemia, Hx Hypertension Endocrine Medical History: Reports: Hx Diabetes Mellitus Type 2 Renal/ Medical History: Denies: Hx Peritoneal Dialysis Psychiatric Medical History: Reports: Hx Dementia - Immunizations Immunizations up to date: Yes Hx Diphtheria, Pertussis, Tetanus Vaccination: Yes Review of Systems - Review of Systems Notes: Not possible to obtain review of system has he is demented Physical Exam - Vital signs Vitals: Temp Pulse Resp BP Pulse Ox 97.9 F 80 16 107/55 L 98 05/28/17 13:26 05/28/17 13:26 05/28/17 13:26 05/28/17 13:26 05/28/17 13:26 - Notes Notes: General exam: Alert , appears well, not in any acute distress, body habitus-- normal, appear to be comfortable, not in any distress. Pleasant gentleman.----. HEENT: Normocephalic atraumatic pupils were equal reactive to light extraocular muscles were within normal range. Neck is supple no JVD no lymphadenopathy. Oral mucosa-not erythematous, no lesions noted no tonsillar enlargement. Chest no lesions, nontraumatic, nontender. No deformity Lungs: Bilaterally clear breath sounds no rales or wheezing, no adventitial sounds, no dullness on percussion. Cardiovascular system: Normal S1-S2 no murmurs, no gallop. Regular rhythm. No peripheral edema over the lower extremities. Gastrointestinal: Normal appearance, positive bowel sounds in all 4 quadrants, no Hepatosplenomegaly, no obvious masses, no obvious abdominal bruit. No horseshoe dullness. Inguinal region: No masses or obvious inguinal hernia noted Genitourinary: Rectal exam: Nervous system: no cranial nerve weakness, no focal neurological deficit noted. Sensation is intact over the lower extremities for pain and touch. Reflexes are 2+ over both patella. Upper extremities: No trauma as noted, normal range of motion for both shoulders , elbows and wrist. Lower extremity: No traumas or deformities noted, normal range of motion for flexion extension abduction abduction of both hip joints, Normal flexion and extension of knee joint. Normal range of motion for plantarflexion dorsiflexion and eversion inversion for both ankles. Skin: No erythema, no edema, no obvious lesions noted Course - Vital Signs Vital signs: Temp Pulse Resp BP Pulse Ox 97.9 F 80 16 107/55 L 98 05/28/17 13:26 05/28/17 13:26 05/28/17 13:26 05/28/17 13:26 05/28/17 13:26 - Laboratory Result Diagrams: 05/28/17 12:56 05/28/17 12:56 Laboratory results interpreted by me: 05/28/17 05/28/17 12:56 12:56 RBC 4.30 L BUN 23 H Glucose 297 H - Diagnostic Test Radiology results interpreted by az: 05/28/17 15:52 Clinical Info Memos Diagnostic report text EXAM DESCRIPTION: KUB/ABDOMEN (SINGLE VIEW) COMPLETED DATE/TIME: 05/28/2017 2:19 pm REASON FOR STUDY: Abdominal pain COMPARISON: None. NUMBER OF VIEWS: One view. TECHNIQUE: Supine radiographic image of the abdomen acquired. LIMITATIONS: None. FINDINGS: BOWEL GAS PATTERN: Normal bowel gas pattern. No dilated loops. CALCIFICATIONS: No suspicious calcifications. SOFT TISSUES: No gross mass or suggestion of organomegaly. HARDWARE: None in the abdomen. BONES: Large bridging osteophytes are present. Degenerative disc changes are present throughout lumbar spine. There appears to be lateral osseous fusion at L5-S1. OTHER: No other significant finding. IMPRESSION: Nonspecific abdomen. Marked osseous findings as described. 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 TECHNICAL DOCUMENTATION: JOB ID: [id number]- All Rights Reserved Dictated by: KARISHMA JUSTIN MD [id number] Discharge - Discharge Clinical Impression: Dementia Qualifiers: Dementia type: Alzheimer's disease Alzheimer's disease onset: late-onset Dementia behavioral disturbance: without behavioral disturbance Qualified Code(s ): G30.1 - Alzheimer's disease with late onset; F02.80 - Dementia in other diseases classified elsewhere without behavioral disturbance; F02.80 - Dementia in other diseases classified elsewhere without behavioral disturbance; F02.80 - Dementia in other diseases classified elsewhere without behavioral disturbance Diarrhea Qualifiers: Diarrhea type: unspecified type Qualified Code(s): R19.7 - Diarrhea, unspecified Instructions: Dementia ([facility])
[2017-05-28 13:17] LABS: ABSOLUTE BASOPHILS # (AUTO) 0.1 10^3/uL (0.0-0.2); ABSOLUTE EOSINOPHILS # (AUTO) 0.1 10^3/uL (0.0-0.6); ABSOLUTE LYMPHOCYTES (AUTO) 1.2 10^3/uL (0.5-4.7); ABSOLUTE MONOCYTES (AUTO) 0.5 10^3/uL (0.1-1.4); ABSOLUTE NEUT (AUTO) 4.1 10^3/uL (1.7-8.2); BASOPHILS % (AUTO) 1.1 % (0-2); EOSINOPHILS % (AUTO) 1.3 % (0-6); HEMATOCRIT 40.2 % (37.9-51.0); HEMOGLOBIN 13.9 g/dL (13.5-17.0); HGB HCT DIFFERENCE 1.5; LYMPHOCYTES % (AUTO) 19.7 % (13-45); MEAN CORPUSCULAR HEMOGLOBIN 32.3 pg (27.0-33.4); MEAN CORPUSCULAR HGB CONC 34.5 g/dL (32.0-36.0); MEAN CORPUSCULAR VOLUME 94 fl (80-97); MONOCYTES % (AUTO) 7.8 % (3-13); RED CELL DISTRIBUTION WIDTH 13.2 % (11.5-14.0); SEGMENTED NEUTROPHILS % (AUTO) 70.1 % (42-78); WHITE BLOOD COUNT 5.8 10^3/uL (4.0-10.5)
[2017-05-28 13:29] VITALS: BP 107/55
[2017-05-28 13:48] LABS: ANION GAP 14 (5-19); BLOOD UREA NITROGEN 23 mg/dL (7-20); CALCIUM 9.2 mg/dL (8.4-10.2); CARBON DIOXIDE 25 mmol/L (22-30); CHLORIDE 99 mmol/L (98-107); CREATININE RESULT 0.85 mg/dL (0.52-1.25); GLUCOSE 297 mg/dL (75-110); POTASSIUM 4.5 mmol/L (3.6-5.0); SODIUM 137.5 mmol/L (137-145)
--- NOTE | 2017-05-28 14:34 | RADIOLOGY REPORT (SQ) ---
EXAM DESCRIPTION: KUB/ABDOMEN (SINGLE VIEW) COMPLETED DATE/TIME: 05/28/2017 2:19 pm REASON FOR STUDY: Abdominal pain COMPARISON: None. NUMBER OF VIEWS: One view. TECHNIQUE: Supine radiographic image of the abdomen acquired. LIMITATIONS: None. FINDINGS: BOWEL GAS PATTERN: Normal bowel gas pattern. No dilated loops. CALCIFICATIONS: No suspicious calcifications. SOFT TISSUES: No gross mass or suggestion of organomegaly. HARDWARE: None in the abdomen. BONES: Large bridging osteophytes are present. Degenerative disc changes are present throughout lumb ar spine. There appears to be lateral osseous fusion at L5-S1. OTHER: No other significant finding. IMPRESSION: Nonspecific abdomen. Marked osseous findings as described. 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
== END 2017-05-28 18:31 | disposition home or self-care (01) ==
LOC: ER 12:35
DX: R19.7 Diarrhea, unspecified (principal); G30.1 Alzheimer's disease with late onset; F02.80 Dementia in other diseases classified elsewhere, unspecified severity, without behavioral disturbance, psychotic disturbance, mood disturbance, and anxiety; I10 Essential (primary) hypertension; E11.9 Type 2 diabetes mellitus without complications; Z87.891 Personal history of nicotine dependence; M47.9 Spondylosis, unspecified
CPT/HCPCS: 36415; 74000; 80048; 85025; 99285

== ENCOUNTER 2017-05-29 21:45 | Emergency (ER) | payer MEDICARE ==
--- NOTE | 2017-05-29 23:22 | ER Document Report ---
ED General - General Chief Complaint: Fall Stated Complaint: FALL,UNKNOWN INJURY Time Seen by Provider: 05/29/17 22:15 TRAVEL OUTSIDE OF THE [place] IN LAST 30 DAYS: No - HPI Patient complains to provider of: Fall Notes: Patient coming in via EMS for fall. Patient has a history of severe dementia and multiple visits here to the ER. According to the nursing report and EMS report patient had a fall hitting a coffee table. Patient complained of some dizziness to EMS and right shoulder pain. Upon my evaluation patient is resting comfortably patient is sleeping easily arousable. Patient is a alert although confused patient is unable to tell me his name where he is at the year. When asked any questions patient just rambles. Patient looks to be no obvious distress upon my evaluation. - Related Data Allergies/Adverse Reactions: No Known Allergies Allergy (Verified 05/29/17 22:14) Past Medical History - Social History Smoking Status: Unknown if Ever Smoked Family History: Reviewed & Not Pertinent Patient has suicidal ideation: No Patient has homicidal ideation: No - Past Medical History Cardiac Medical History: Reports: Hx Hypercholesterolemia, Hx Hypertension Endocrine Medical History: Reports: Hx Diabetes Mellitus Type 2 Renal/ Medical History: Denies: Hx Peritoneal Dialysis Psychiatric Medical History: Reports: Hx Dementia - Immunizations Immunizations up to date: Yes Hx Diphtheria, Pertussis, Tetanus Vaccination: Yes Review of Systems - Review of Systems Notes: Severe dementia Physical Exam - Vital signs Vitals: Temp Pulse Resp BP Pulse Ox 97.6 F 76 18 106/58 L 95 05/29/17 21:55 05/29/17 21:55 05/29/17 21:55 05/29/17 21:55 05/29/17 21:55 Interpretation: Normal - General General appearance: Appears well, Alert - HEENT Head: Normocephalic, Atraumatic Eyes: Normal Pupils: PERRL - Respiratory Respiratory status: No respiratory distress Chest status: Nontender Breath sounds: Normal Chest palpation: Normal - Cardiovascular Rhythm: Regular Heart sounds: Normal auscultation Murmur: No - Abdominal Inspection: Normal Distension: No distension Bowel sounds: Normal Tenderness: Nontender Organomegaly: No organomegaly - Back Back: Normal, Nontender - Extremities General upper extremity: Nontender, Normal color, Normal ROM, Normal temperature. No: Normal inspection - Patient with a healing abrasion on the left dorsum of the hand. No signs of any infection. General lower extremity: Normal inspection, Nontender, Normal color, Normal ROM , Normal temperature, Normal weight bearing. No: Mele's sign - Neurological Neuro grossly intact: Yes Motor strength normal: LUE, RUE, LLE, RLE Sensory: Normal - Psychological Associated symptoms: Normal affect, Normal mood - Skin Skin Temperature: Warm Skin Moisture: Dry Skin Color: Normal Course - Re-evaluation Re-evalutation: 05/29/17 23:51 X-rays not show any acute fracture. This was performed due to the reported history of right shoulder pain. Patient does not report any dizziness denies any complaints. Examination does not reveal any signs of overt trauma is no bruising no hematomas. Patient able to move all 4 extremities. Ocular examination is also normal. Patient was observed in ER for approximately 2 hours with no adverse condition seen patient will be transported back to his home. We will attempt to contact family members however in the past there is been no answer from the patient's . 05/30/17 00:13 Nursing staff is actually able to contact the . She expressed no other concerns according to nursing report. Patient looks stable to be discharged back to his place of residence. - Vital Signs Vital signs: Temp Pulse Resp BP Pulse Ox 97.6 F 76 18 106/58 L 95 05/29/17 21:55 05/29/17 21:55 05/29/17 21:55 05/29/17 21:55 05/29/17 21:55 Discharge - Discharge Clinical Impression: Fall at home, healing abrasion left hand Dementia Qualifiers: Dementia type: unspecified type Dementia behavioral disturbance: without behavioral disturbance Qualified Code(s): F03.90 - Unspecified dementia without behavioral disturbance Condition: Stable Disposition: HOME, SELF-CARE Instructions: Abrasions ([facility]), Dementia ([facility]) Additional Instructions: Evaluation does not reveal any traumatic findings. Upon her last visit she has been given multiple resources to aid Mr. Jiménez and care at home. I highly recommend following up with these resources. Return to the ER for any concerning issues.
--- NOTE | 2017-05-29 23:37 | RADIOLOGY REPORT (SQ) ---
EXAM DESCRIPTION: SHOULDER RIGHT 2 OR MORE VIEWS CLINICAL HISTORY: 77 years, Male, fall pain COMPARISON: None. NUMBER OF VIEWS: Two, frontal and scapular Y. FINDINGS: Moderate glenohumeral osteoarthritis. 0.2 cm ossicular fragment superior to the right AC joint. Small chronic Hill-Sachs deformity. Median sternotomy. No dislocation. IMPRESSION: No acute findings. Mild/moderate osteoarthritis. 2011 [employer]- All Rights Reserved
[2017-05-30 00:39] VITALS: BP 122/76
== END 2017-05-30 00:49 | disposition home or self-care (01) ==
LOC: ER 21:45
DX: S60.512A Abrasion of left hand, initial encounter (principal); F03.90 Unspecified dementia, unspecified severity, without behavioral disturbance, psychotic disturbance, mood disturbance, and anxiety; R42 Dizziness and giddiness; M25.511 Pain in right shoulder; W18.00XA Striking against unspecified object with subsequent fall, initial encounter; Z91.81 History of falling
CPT/HCPCS: 99283

== ENCOUNTER 2017-06-04 12:16 | Emergency (ER) | payer MEDICARE ==
[2017-06-04] MEDS ORDERED: NORMAL SALINE 1000 ML 1,000 ML IV ONE (13:02)
--- NOTE | 2017-06-04 13:02 | ER Document Report ---
ED Dizziness/Weakness - General Chief Complaint: General Weakness Stated Complaint: ALTERED MENTAL STATUS Time Seen by Provider: 06/04/17 12:46 Mode of Arrival: Medic Information source: Outside Facility Records Notes: Patient is a 77-year-old demented patient who has been here every couple of days since May 11. states that she cannot handle him anymore at home and that he is progressively more combative. Casework has been working on this case since April and is close to having placement opportunity for him. denies that anything new has occurred with his medical or mental status. TRAVEL OUTSIDE OF THE [place] IN LAST 30 DAYS: No - Related Data Allergies/Adverse Reactions: No Known Allergies Allergy (Verified 06/04/17 12:24) Home Medications: Current Home Medications Aspirin [Aspirin EC] 81 mg PO DAILY 06/04/17 [History] Citalopram Hydrobromide [Citalopram HBr] 10 mg PO DAILY 06/04/17 [History] Irbesartan [Irbesartan] 150 mg PO DAILY 06/04/17 [History] Trazodone HCl [Desyrel 50 mg Tablet] 50 mg PO QHS 06/04/17 [History] Past Medical History - General Information source: Relative, Outside Facility Records - Social History Smoking Status: Unknown if Ever Smoked Family History: Reviewed & Not Pertinent - Past Medical History Cardiac Medical History: Reports: Hx Hypercholesterolemia, Hx Hypertension Endocrine Medical History: Reports: Hx Diabetes Mellitus Type 2 Renal/ Medical History: Denies: Hx Peritoneal Dialysis Psychiatric Medical History: Reports: Hx Dementia - Immunizations Immunizations up to date: Yes Hx Diphtheria, Pertussis, Tetanus Vaccination: Yes Review of Systems - Review of Systems Constitutional: No symptoms reported EENT: No symptoms reported Cardiovascular: No symptoms reported Respiratory: No symptoms reported Gastrointestinal: No symptoms reported Genitourinary: No symptoms reported Male Genitourinary: No symptoms reported Musculoskeletal: No symptoms reported Skin: No symptoms reported Hematologic/Lymphatic: No symptoms reported Neurological/Psychological: See HPI Physical Exam - Vital signs Vitals: BP 92/50 L 06/04/17 12:32 - Notes Notes: PHYSICAL EXAMINATION: GENERAL: Demented, smiling, in no acute distress. HEAD: Atraumatic, normocephalic. EYES: Pupils equal round and reactive to light, extraocular movements intact, sclera anicteric, conjunctiva are normal. NECK: Normal range of motion, supple without lymphadenopathy LUNGS: CTAB and equal. No wheezes rales or rhonchi. HEART: Regular rate and rhythm without murmurs ABDOMEN: Soft, no tenderness. No guarding, no rebound BACK: no vertebral tenderness, normal ROM GI/: no CVA tenderness EXTREMITIES: Normal range of motion, no pitting edema. No cyanosis. NEUROLOGICAL: Cranial nerves grossly intact. Normal sensory/motor exams. PSYCH:demented SKIN: Warm, Dry, normal turgor, no rashes or lesions noted Course - Re-evaluation Re-evalutation: 06/04/17 17:22 Lab work and vital signs are at patient's baseline. There is no acute change with his medical or mental status. Shoemaker Apprentice has been hard at work for weeks and getting him placement to a detention. There is no reason to admit him here or keep him in the emergency department. He does have home health at home. - Vital Signs Vital signs: Temp Pulse Resp BP Pulse Ox 15 116/67 95 06/04/17 16:15 06/04/17 16:15 06/04/17 16:15 - Laboratory Result Diagrams: 06/04/17 12:45 06/04/17 12:45 Laboratory results interpreted by me: 06/04/17 06/04/17 12:45 13:40 Chloride 97 L BUN 23 H Glucose 162 H Magnesium 1.3 L Urine Protein 30 H Urine Glucose (UA) 50 H Urine Ketones TRACE H Urine Urobilinogen 2.0 H Urine Ascorbic Acid 20 H Discharge - Discharge Clinical Impression: Dementia Qualifiers: Dementia type: unspecified type Dementia behavioral disturbance: without behavioral disturbance Qualified Code(s): F03.90 - Unspecified dementia without behavioral disturbance Condition: Stable Disposition: HOME, SELF-CARE Additional Instructions: Return immediately for any new or worsening symptoms. Follow up with primary care provider, call tomorrow to make followup appointment.
[2017-06-04 13:18] LABS: ABSOLUTE BASOPHILS # (AUTO) 0.1 10^3/uL (0.0-0.2); ABSOLUTE EOSINOPHILS # (AUTO) 0.1 10^3/uL (0.0-0.6); ABSOLUTE LYMPHOCYTES (AUTO) 1.3 10^3/uL (0.5-4.7); ABSOLUTE MONOCYTES (AUTO) 0.6 10^3/uL (0.1-1.4); ABSOLUTE NEUT (AUTO) 7.4 10^3/uL (1.7-8.2); EOSINOPHILS % (AUTO) 0.7 % (0-6); LYMPHOCYTES % (AUTO) 14.1 % (13-45); MEAN CORPUSCULAR HEMOGLOBIN 32.1 pg (27.0-33.4); MEAN CORPUSCULAR HGB CONC 35.1 g/dL (32.0-36.0); MEAN CORPUSCULAR VOLUME 92 fl (80-97); MONOCYTES % (AUTO) 6.3 % (3-13); RED BLOOD COUNT 4.37 10^6/uL (4.35-5.55); RED CELL DISTRIBUTION WIDTH 13.2 % (11.5-14.0); SEGMENTED NEUTROPHILS % (AUTO) 77.9 % (42-78); WHITE BLOOD COUNT 9.6 10^3/uL (4.0-10.5)
[2017-06-04 13:41] LABS: ALANINE AMINOTRANSFERASE 39 U/L (21-72); ALKALINE PHOSPHATASE 71 U/L (38-126); ANION GAP 16 (5-19); ASPARTATE AMINO TRANSFERASE 25 U/L (17-59); BILIRUBIN,DIRECT 0.1 mg/dL (0.0-0.4); BILIRUBIN,TOTAL 0.5 mg/dL (0.2-1.3); BLOOD UREA NITROGEN 23 mg/dL (7-20); CALCIUM 9.7 mg/dL (8.4-10.2); CARBON DIOXIDE 25 mmol/L (22-30); CHLORIDE 97 mmol/L (98-107); CREATININE RESULT 1.18 mg/dL (0.52-1.25); GLUCOSE 162 mg/dL (75-110); MAGNESIUM 1.3 mg/dL (1.6-2.3); POTASSIUM 4.6 mmol/L (3.6-5.0); TOTAL PROTEIN 6.7 g/dL (6.3-8.2)
[2017-06-04 13:59] LABS: ALCOHOL < 10 mg/dL (NONE DETECTED)
[2017-06-04 14:13] LABS: APPEARANCE,URINE CLOUDY; BILIRUBIN,URINE NEGATIVE (NEGATIVE); GLUCOSE, URINE 50 mg/dL (NEGATIVE); KETONES,URINE TRACE mg/dL (NEGATIVE); LEUKOCYTE ESTERASE,URINE NEGATIVE (NEGATIVE); NITRITE,URINE NEGATIVE (NEGATIVE); PROTEIN,URINE 30 mg/dL (NEGATIVE); URINE SPECIFIC GRAVITY 1.028
[2017-06-04 14:16] LABS: URINE BARBITURATES SCREEN NEGATIVE; URINE METHADONE SCREEN NEGATIVE; URINE OPIATES LOW NEGATIVE; URINE PHENCYCLIDINE SCREEN NEGATIVE
[2017-06-04 17:39] VITALS: BP 125/72
--- NOTE | 2017-06-04 21:56 | EKG REPORT ---
SEVERITY:- OTHERWISE NORMAL ECG - SINUS RHYTHM BORDERLINE LEFT AXIS DEVIATION LOW VOLTAGE IN FRONTAL LEADS : Confirmed by: Malcom Tee 04-Jun-2017 21:56:08
--- NOTE | 2017-06-08 09:09 | EKG REPORT ---
SEVERITY:- BORDERLINE ECG - SINUS RHYTHM SHORT [place] INTERVAL, ACCELERATED AV CONDUCTION LOW VOLTAGE IN FRONTAL LEADS CONSIDER INFERIOR INFARCT : Confirmed on behalf of: Malcom Tee 08-Jun-2017 09:09:38
== END 2017-06-04 17:36 | disposition home or self-care (01) ==
LOC: ER 12:16
DX: F03.91 Unspecified dementia, unspecified severity, with behavioral disturbance (principal); I10 Essential (primary) hypertension; E11.9 Type 2 diabetes mellitus without complications
CPT/HCPCS: 93005 ×2; 99285; 96360; 36415; 80307 ×2; 83735; 85025; 80053; 81001; 93010 ×2; J7030

== ENCOUNTER 2017-06-07 12:11 | Emergency (ER) | payer MEDICARE ==
--- NOTE | 2017-06-07 12:18 | ER Document Report ---
ED General - General Stated Complaint: FALL/HEAD INJURY Time Seen by Provider: 06/07/17 12:16 Mode of Arrival: Ambulatory Information source: Patient Notes: 77-year-old man with a history of dementia who is brought in by EMS after a fall at home and hitting his head. The had called EMS. She states that the mental status has not changed but he did hit his head. She denies any loss of consciousness. The patient is alert and at his baseline (as per the nursing staff that knows him). Medicines verified with : Metformin 1000mg BID Escitalopram 10 daily Valsartan 160 mg daily Aspirin 81 mg Memantine 10 mg BID Atorvastatin 80 mg daily Patient not taking Trazodone ( states it makes him too unstable), and Donepezil dissolvable (because he is refusing to let it melt on his tongue) TRAVEL OUTSIDE OF THE [place] IN LAST 30 DAYS: No - HPI Onset: Just prior to arrival Onset/Duration: Sudden Quality of pain: No pain Severity: None Pain Level: Denies Associated symptoms: denies: Chest pain, Fever, Shortness of breath Exacerbated by: Denies Relieved by: Denies Similar symptoms previously: Yes Recently seen / treated by doctor: Yes - Related Data Allergies/Adverse Reactions: No Known Allergies Allergy (Verified 06/04/17 12:24) Past Medical History - General Information source: Relative, Legal Guardian, Emergency Med Personnel - Social History Smoking Status: Unknown if Ever Smoked Cigarette use (# per day): No Chew tobacco use (# tins/day): No Smoking Education Provided: No Frequency of alcohol use: None Drug Abuse: None Lives with: Family Family History: Reviewed & Not Pertinent Patient has suicidal ideation: No Patient has homicidal ideation: No - Past Medical History Cardiac Medical History: Reports: Hx Hypercholesterolemia, Hx Hypertension Endocrine Medical History: Reports: Hx Diabetes Mellitus Type 2 Renal/ Medical History: Denies: Hx Peritoneal Dialysis Psychiatric Medical History: Reports: Hx Dementia - Immunizations Immunizations up to date: Yes Hx Diphtheria, Pertussis, Tetanus Vaccination: Yes Review of Systems - Review of Systems Constitutional: denies: Chills, Fever EENT: No symptoms reported Cardiovascular: No symptoms reported Respiratory: No symptoms reported Gastrointestinal: No symptoms reported Genitourinary: No symptoms reported Male Genitourinary: No symptoms reported Musculoskeletal: No symptoms reported Skin: No symptoms reported Hematologic/Lymphatic: No symptoms reported Neurological/Psychological: See HPI Physical Exam - Vital signs Vitals: Temp Pulse Resp BP Pulse Ox 97.9 F 83 17 101/60 94 06/07/17 12:19 06/07/17 12:19 06/07/17 12:19 06/07/17 12:19 06/07/17 12:19 Notes: Physical exam: GENERAL: 87-year-old man, alert, demented, at baseline by reports from the nursing staff was known him. HEAD: Normocephalic, patient has contusion to the right side of his forehead, there is no bony crepitus. EYES: Pupils equal round and reactive to light, extraocular movements intact, sclera anicteric, conjunctiva are normal. ENT: TMs normal, nares patent, oropharynx clear without exudates. Moist mucous membranes. NECK: Normal range of motion, supple without obvious mass or JVD. LUNGS: Breath sounds clear to auscultation bilaterally and equal. No wheezes rales or rhonchi. HEART: Regular rate and rhythm without murmurs, rubs or gallops. ABDOMEN: Soft, normoactive bowel sounds. No tenderness to palpation. No guarding, no rebound. No masses appreciated. EXTREMITIES: Normal range of motion, no pitting or edema. No clubbing or cyanosis. NEUROLOGICAL: Cranial nerves II through XII grossly intact. Normal speech, moving all extremities. PSYCH: Normal mood, normal affect. SKIN: She does have a contusion to the right upper face. Course - Re-evaluation Re-evalutation: 06/07/17 17:37 CT of the head shows a small less than 5 mm subdural hematoma on the right side. I discussed the CT findings with the patient's (Martha [phone]) and inquired about their desire to seek evaluation by a neurosurgeon with the possibility for surgery. She said that based upon his long-standing dementia ( for the past 5 years), this is something that she is not interested in. She also reiterated that she is the power of electronic design engineer and that she has papers for DNR. She wishes this to continue, therefore I have written the order for DNR. I have discussed the case with Dr. Herrera regarding admitting the patient for observation with a repeat head CT. She has reviewed the hospital policy that the only patient's with intracranial bleeds that are admitted are those that are designated "comfort care". This then led to the discussion of " Comfort Care" terms and definition: which is apparently interpreted by the hospital staff as admitting someone for pain medicine only with discontinuation of all other medicines. I have discussed this with the patient's and she is not agreeable to "comfort care". I had the CT scan films pushed to [facility]. I discussed the case with Dr Enciso ( Neurosurgery at [facility]) who was able to look at those films. He stated that given the small size of the subdural, he felt that it was highly unlikely that this would be a problem given that the patient is not on any anticoagulation. He recommended repeating the CT after a period of observation and if there is no changes to discharge back home. If the bleed gets larger, he recommended further observation with serial CTs and possible platelet transfusion (i.e. patient would require transfer in that case). He agreed with Keppra at 500 mg twice daily. I have discussed this plan with the patient's (period of observation, repeat CT scan first thing in the morning and discharge home in the am if the CT is relatively stable): she understands this and is agreeable. 06/07/17 17:46 06/07/17 18:07 - Vital Signs Vital signs: Temp Pulse Resp BP Pulse Ox 97.9 F 83 16 107/69 97 06/07/17 12:19 06/07/17 12:19 06/07/17 16:01 06/07/17 16:01 06/07/17 14:00 - Laboratory Result Diagrams: 06/07/17 13:35 06/07/17 13:35 Laboratory results interpreted by me: 06/07/17 06/07/17 13:35 16:00 Sodium 134.1 L Chloride 96 L Glucose 181 H Urine Glucose (UA) 50 H Urine Ascorbic Acid 40 H - Diagnostic Test Radiology reviewed: Image reviewed, Reports reviewed - CT scan of the head shows a small subdural Discharge - Discharge Clinical Impression: Subdural Hematoma Clinical Impression: (Ruled Out): Subdural hematomas Condition: Stable Disposition: HOME, SELF-CARE Additional Instructions: As we discussed, Mr. Waterman's CT showed a small subdural bleed. The neurosurgeon at [facility] in [place] had recommended Keppra (500 mg twice daily) as a prophylactic measure against seizures. This medicine can be stopped after 2 months if there is no seizures. Continue current medicines BUT stop the aspirin. Prescriptions: Levetiracetam [Keppra 500 mg Tablet] 500 mg PO Q12 #60 tablet
--- NOTE | 2017-06-07 13:25 | RADIOLOGY REPORT (SQ) ---
EXAM DESCRIPTION: CT HEAD WITHOUT COMPLETED DATE/TIME: 06/07/2017 1:05 pm REASON FOR STUDY: fall, hit head COMPARISON: None. TECHNIQUE: Axial images acquired through the brain without intravenous contrast. Images reviewed wi th bone, brain and subdural windows. Images stored on PACS. All CT scanners at this facility use dose modulation, iterative reconstruction, and/or weight based d osing when appropriate to reduce radiation dose to as low as reasonably achievable (ALARA). [facility]: Dose Right [facility]: CareDose [facility]: Dose Right [facility]: Teradose 4D [facility]: [employer] RADIATION DOSE: CT Rad equipment meets quality standard of care and radiation dose reduction techniq ues were employed. CTDIvol: 64.6 mGy. DLP: 2172 mGy-cm. mGy. LIMITATIONS: Motion artifact throughout the study FINDINGS: On axial images 16 through 28, a thin rim acute hemispheric subdural collection is present measuring 5 mm or less in greatest thickness. There is mild local mass effect but no discernible ri ght to left subfalcine shift. This report was called to Dr. Mullen as a critical result, 1315 hours 1 08/08/2016. Remainder of the study demonstrates no gross large territory acute ischemic change, normal size ventr icles. Limited bone windows demonstrate no calvarial fracture. IMPRESSION: Thin rim right hemispheric subdural acute hemorrhage, less than 5 mm in thickness EVIDENCE OF ACUTE STROKE: NO. COMMENT: Pertinent findings on the imaging study reported as a CRITICAL RESULT to RIZWANA MULLEN MD at13:15 on 06/07/2017. Category of Critical Result: Right hemisphere acute subdural bleed less than 5 mm in thickness Quality ID # [id number]: Final reports with documentation of one or more dose reduction techniques (e.g., Au tomated exposure control, adjustment of the mA and/or kV according to patient size, use of iterative reconstruction technique) TECHNICAL DOCUMENTATION: JOB ID: [id number] [email or web address]- All Rights Reserved
--- NOTE | 2017-06-07 13:27 | RADIOLOGY REPORT (SQ) ---
EXAM DESCRIPTION: CT CERVICAL SPINE WITHOUT COMPLETED DATE/TIME: 06/07/2017 1:05 pm REASON FOR STUDY: fall, hit head COMPARISON: CT brain same date TECHNIQUE: Axial images acquired through the cervical spine without intravenous contrast. Images re viewed with lung, soft tissue and bone windows. Reconstructed coronal and sagittal MPR images review ed. Images stored on PACS. All CT scanners at this facility use dose modulation, iterative reconstruction, and/or weight based d osing when appropriate to reduce radiation dose to as low as reasonably achievable (ALARA). [facility]: Dose Right [facility]: CareDose [facility]: Dose Right [facility]: Teradose 4D [facility]: Smart [employer] RADIATION DOSE: CT Rad equipment meets quality standard of care and radiation dose reduction techniq ues were employed. CTDIvol: 21.5 mGy. DLP: 951 mGy-cm. mGy. LIMITATIONS: Motion artifact throughout the study FINDINGS: ALIGNMENT: Anatomic. MINERALIZATION: Normal. VERTEBRAL BODIES: No fractures or dislocation. DISCS: Multilevel disc space narrowing with osteophytes. FACETS, LATERAL MASSES, POSTERIOR ELEMENTS: Facet arthropathy. No fractures. No dislocation. No ac [place] findings. HARDWARE: None in the spine. VISUALIZED RIBS: No fractures. LUNG APICES AND SOFT TISSUES: No significant or acute findings. OTHER: No other significant finding. IMPRESSION: Limited study due to motion artifact. There is multilevel foraminal stenosis from bulky facet hypertrophy. No gross displaced acute fracture. TECHNICAL DOCUMENTATION: JOB ID: [id number] Quality ID # [id number]: Final reports with documentation of one or more dose reduction techniques (e.g., Au tomated exposure control, adjustment of the mA and/or kV according to patient size, use of iterative reconstruction technique) 2010 [employer]- All Rights Reserved
[2017-06-07 14:02] LABS: ABSOLUTE BASOPHILS # (AUTO) 0.1 10^3/uL (0.0-0.2); ABSOLUTE EOSINOPHILS # (AUTO) 0.1 10^3/uL (0.0-0.6); ABSOLUTE LYMPHOCYTES (AUTO) 1.5 10^3/uL (0.5-4.7); ABSOLUTE MONOCYTES (AUTO) 0.6 10^3/uL (0.1-1.4); ABSOLUTE NEUT (AUTO) 6.8 10^3/uL (1.7-8.2); BASOPHILS % (AUTO) 0.8 % (0-2); EOSINOPHILS % (AUTO) 0.9 % (0-6); HEMATOCRIT 39.8 % (37.9-51.0); HEMOGLOBIN 13.9 g/dL (13.5-17.0); HGB HCT DIFFERENCE 1.9; LYMPHOCYTES % (AUTO) 16.8 % (13-45); MEAN CORPUSCULAR HEMOGLOBIN 31.9 pg (27.0-33.4); MEAN CORPUSCULAR VOLUME 91 fl (80-97); MONOCYTES % (AUTO) 6.6 % (3-13); RED BLOOD COUNT 4.38 10^6/uL (4.35-5.55); RED CELL DISTRIBUTION WIDTH 13.2 % (11.5-14.0); SEGMENTED NEUTROPHILS % (AUTO) 74.9 % (42-78); WHITE BLOOD COUNT 9.1 10^3/uL (4.0-10.5)
[2017-06-07 14:07] LABS: ALANINE AMINOTRANSFERASE 35 U/L (21-72); ALBUMIN 4.2 g/dL (3.5-5.0); ALKALINE PHOSPHATASE 76 U/L (38-126); ANION GAP 9 (5-19); ASPARTATE AMINO TRANSFERASE 26 U/L (17-59); BILIRUBIN,DIRECT 0.3 mg/dL (0.0-0.4); BILIRUBIN,TOTAL 0.6 mg/dL (0.2-1.3); BLOOD UREA NITROGEN 12 mg/dL (7-20); CALCIUM 9.5 mg/dL (8.4-10.2); CARBON DIOXIDE 29 mmol/L (22-30); CHLORIDE 96 mmol/L (98-107); CREATININE RESULT 0.73 mg/dL (0.52-1.25); GLUCOSE 181 mg/dL (75-110); POTASSIUM 4.4 mmol/L (3.6-5.0); SODIUM 134.1 mmol/L (137-145); TOTAL PROTEIN 7.5 g/dL (6.3-8.2)
[2017-06-07] MEDS ORDERED: LEVETIRACETAM 1000 MG/NACL-ISO 1,000 MG/100 ML RTUPB IV ONE (15:38)
[2017-06-07 16:17] LABS: APPEARANCE,URINE SLIGHTLY-CLOUDY; BILIRUBIN,URINE NEGATIVE (NEGATIVE); GLUCOSE, URINE 50 mg/dL (NEGATIVE); KETONES,URINE NEGATIVE (NEGATIVE); LEUKOCYTE ESTERASE,URINE NEGATIVE (NEGATIVE); NITRITE,URINE NEGATIVE (NEGATIVE); PROTEIN,URINE NEGATIVE (NEGATIVE); URINE SPECIFIC GRAVITY 1.017; UROBILINOGEN,URINE NEGATIVE mg/dL (<2.0)
[2017-06-07] MEDS ORDERED: METFORMIN HCL 500 MG TABLET PO ONE (17:48)
[2017-06-07] MEDS ORDERED: LORAZEPAM 1 MG TABLET PO ONE (17:49)
[2017-06-07] MEDS ORDERED: MEMANTINE HCL 10 MG TABLET PO ONE (17:58)
[2017-06-07] MEDS ORDERED: LORAZEPAM 1 MG TABLET PO SCH (18:00)
[2017-06-07] MEDS ORDERED: METFORMIN HCL 500 MG TABLET PO SCH (18:00)
[2017-06-07] MEDS ORDERED: DONEPEZIL HCL 5 MG TABLET PO ONE (18:03)
[2017-06-07] MEDS ORDERED: MEMANTINE HCL 10 MG TABLET PO SCH (18:15)
[2017-06-08] MEDS: LORAZEPAM 1 MG TABLET PO PRN ×2 (01:58→07:23)
[2017-06-08] MEDS ORDERED: LORAZEPAM INJ 2 MG/1 ML VIAL IV ONE (04:28)
--- NOTE | 2017-06-08 06:22 | RADIOLOGY REPORT (SQ) ---
EXAM DESCRIPTION: CT HEAD WITHOUT CLINICAL HISTORY: subdural COMPARISON: 06/07/2017 TECHNIQUE: Axial CT of the head obtained from the skull apex to the skull base without contrast. FINDINGS: Redemonstrated right temporal parietal convexity subdural hematoma measuring 5 mm in greatest width with effacement of adjacent sulcal spaces. No significant midline shift. The ventricular system and sulcal spaces are mildly enlarged compatible with mild cerebral atrophy. Scattered areas of hypodensity throughout the supratentorial white matter are nonspecific and may be related to chronic small vessel ischemic change. The visualized paranasal sinuses and the mastoids are clear. No skull fracture identified. Visualized orbits and globes are unremarkable. Atherosclerotic calcification of the intracranial internal carotid arteries. DLP: 1267.44 mGy-cm IMPRESSION: 1. Redemonstrated right temporoparietal convexity subdural hematoma measuring 5 mm in greatest width. No significant midline shift. This exam was performed according to our departmental dose-optimization program, which includes automated exposure control, adjustment of the mA and/or kV according to patient size and/or use of iterative reconstruction technique.
[2017-06-08] MEDS ORDERED: LEVETIRACETAM 500 MG TABLET PO SCH (08:00)
[2017-06-08 08:12] VITALS: BP 133/72
[2017-06-08] MEDS ORDERED: ESCITALOPRAM OXALATE 10 MG TABLET PO SCH (10:00)
[2017-06-08] MEDS ORDERED: VALSARTAN 160 MG TABLET PO SCH (10:00)
[2017-06-08] MEDS ORDERED: MEMANTINE HCL 10 MG TABLET PO SCH (10:00)
== END 2017-06-08 08:12 | disposition home or self-care (01) ==
LOC: ER 12:11
DX: S06.5X9A Traumatic subdural hemorrhage with loss of consciousness of unspecified duration, initial encounter (principal); W18.00XA Striking against unspecified object with subsequent fall, initial encounter; Z79.899 Other long term (current) drug therapy
CPT/HCPCS: 99284; 96374; 96375; 36415; 85025; 85610; 80053; 81001; 70450 ×2; 72125; J2060; A9270 ×3; J1953

== ENCOUNTER 2017-06-10 00:18 | Emergency (ER) | payer MEDICARE ==
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
[2017-06-10 01:12] LABS: ABSOLUTE BASOPHILS # (AUTO) 0.1 10^3/uL (0.0-0.2); ABSOLUTE EOSINOPHILS # (AUTO) 0.1 10^3/uL (0.0-0.6); ABSOLUTE LYMPHOCYTES (AUTO) 2.2 10^3/uL (0.5-4.7); ABSOLUTE MONOCYTES (AUTO) 0.7 10^3/uL (0.1-1.4); ABSOLUTE NEUT (AUTO) 5.4 10^3/uL (1.7-8.2); EOSINOPHILS % (AUTO) 1.7 % (0-6); HEMATOCRIT 37.3 % (37.9-51.0); HEMOGLOBIN 13.2 g/dL (13.5-17.0); HGB HCT DIFFERENCE 2.3; LYMPHOCYTES % (AUTO) 25.7 % (13-45); MEAN CORPUSCULAR HEMOGLOBIN 32.1 pg (27.0-33.4); MEAN CORPUSCULAR HGB CONC 35.4 g/dL (32.0-36.0); MEAN CORPUSCULAR VOLUME 91 fl (80-97); MONOCYTES % (AUTO) 8.3 % (3-13); RED BLOOD COUNT 4.11 10^6/uL (4.35-5.55); RED CELL DISTRIBUTION WIDTH 13.2 % (11.5-14.0); SEGMENTED NEUTROPHILS % (AUTO) 63.3 % (42-78); WHITE BLOOD COUNT 8.5 10^3/uL (4.0-10.5)
[2017-06-10 01:30] LABS: ALANINE AMINOTRANSFERASE 30 U/L (21-72); ALBUMIN 3.9 g/dL (3.5-5.0); ALKALINE PHOSPHATASE 71 U/L (38-126); ANION GAP 11 (5-19); ASPARTATE AMINO TRANSFERASE 25 U/L (17-59); BILIRUBIN,DIRECT 0.1 mg/dL (0.0-0.4); BILIRUBIN,TOTAL 0.5 mg/dL (0.2-1.3); BLOOD UREA NITROGEN 11 mg/dL (7-20); CALCIUM 9.1 mg/dL (8.4-10.2); CARBON DIOXIDE 30 mmol/L (22-30); CHLORIDE 95 mmol/L (98-107); CREATININE RESULT 0.79 mg/dL (0.52-1.25); GLUCOSE 180 mg/dL (75-110); POTASSIUM 4.1 mmol/L (3.6-5.0); SODIUM 135.6 mmol/L (137-145); TOTAL PROTEIN 6.3 g/dL (6.3-8.2)
[2017-06-10 01:32] LABS: ALCOHOL < 10 mg/dL (NONE DETECTED)
[2017-06-10] MEDS ORDERED: RISPERIDONE 1 MG TABLET PO ONE ×2 (02:15→03:46)
[2017-06-10 04:28] LABS: APPEARANCE,URINE CLEAR; BILIRUBIN,URINE NEGATIVE (NEGATIVE); GLUCOSE, URINE 150 mg/dL (NEGATIVE); KETONES,URINE NEGATIVE (NEGATIVE); LEUKOCYTE ESTERASE,URINE NEGATIVE (NEGATIVE); NITRITE,URINE NEGATIVE (NEGATIVE); PROTEIN,URINE NEGATIVE (NEGATIVE); URINE SPECIFIC GRAVITY 1.004; UROBILINOGEN,URINE NEGATIVE mg/dL (<2.0)
[2017-06-10 04:43] LABS: URINE BARBITURATES SCREEN NEGATIVE; URINE METHADONE SCREEN NEGATIVE; URINE OPIATES LOW NEGATIVE; URINE PHENCYCLIDINE SCREEN NEGATIVE
[2017-06-10] MEDS ORDERED: DIPHENHYDRAMINE HCL 50 MG/ML VIAL IM ONE (06:45)
--- NOTE | 2017-06-10 09:18 | ER Document Report ---
Doctor's Note Notes: 06/10/17 09:16 I have evaluated this patient this am and has no new issues at this time. Case management will help to dispo patient. 06/10/17 10:12 Spoke with case management. Adult Protective Services is already aware the patient and is working closely with the patient and his . Plan is for patient to be discharged back to his house and his APS worker will go to the patient's house today. was spoken to and she is in the process of getting the patient admitted to [place]. Case management is recommending discharge back to home. Mental Health is recommending Depakote 500 mg twice daily, BuSpar 5 mg every morning and 10 mg every afternoon, and clonidine 0.1 mg every 8 hours as needed.
[2017-06-10] MEDS ORDERED: DIVALPROEX SODIUM 250 MG TABLET.DR PO ONE (11:01)
[2017-06-10] MEDS ORDERED: BUSPIRONE HCL 10 MG TABLET PO ONE (11:02)
[2017-06-10] MEDS ORDERED: CLONIDINE HCL 0.1 MG TABLET PO ONE (11:02)
--- NOTE | 2017-06-10 13:11 | EKG REPORT ---
SEVERITY:- ABNORMAL ECG - SINUS OR ECTOPIC ATRIAL RHYTHM SHORT TX INTERVAL, ACCELERATED AV CONDUCTION LOW VOLTAGE IN FRONTAL LEADS CONSIDER INFERIOR INFARCT : Confirmed by: Zak Mariscal MD 10-Jun-2017 13:10:17
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
[2017-06-10 14:30] VITALS: BP 107/53
== END 2017-06-10 14:30 | disposition home or self-care (01) ==
LOC: ER 00:18
DX: G30.9 Alzheimer's disease, unspecified (principal); T74.01XA Adult neglect or abandonment, confirmed, initial encounter; Y07.02 Wife, perpetrator of maltreatment and neglect; S06.5X9D Traumatic subdural hemorrhage with loss of consciousness of unspecified duration, subsequent encounter; W19.XXXD Unspecified fall, subsequent encounter; I10 Essential (primary) hypertension; E11.9 Type 2 diabetes mellitus without complications
CPT/HCPCS: 93005; 99285; 96372; 36415; 80307 ×4; 85025; 80053; 81001; 93010; A9270 ×4; J1200

== ENCOUNTER 2017-06-12 06:19 | Emergency (ER) | payer MEDICARE ==
--- NOTE | 2017-06-12 06:28 | ER Document Report ---
ED General - General Stated Complaint: PSYCH EVAL Time Seen by Provider: 06/12/17 06:25 Mode of Arrival: Medic Information source: Patient, Emergency Med Personnel Cannot obtain history due to: Dementia Notes: 77 yr old with dementia presents with EMS with concerns of sundowning. was up all night with patient, police and ems were called and police decided patient should be seen. patient has no complaints TRAVEL OUTSIDE OF THE [place] IN LAST 30 DAYS: No - HPI Onset: Other Onset/Duration: Intermittent Quality of pain: No pain Severity: Mild Pain Level: Denies Associated symptoms: Other Exacerbated by: Denies Relieved by: Denies Similar symptoms previously: Yes Recently seen / treated by doctor: Yes - Related Data Allergies/Adverse Reactions: No Known Allergies Allergy (Verified 06/04/17 12:24) Past Medical History - General Cannot obtain history due to: Dementia - Social History Smoking Status: Never Smoker Cigarette use (# per day): No Chew tobacco use (# tins/day): No Smoking Education Provided: No Family History: Reviewed & Not Pertinent - Past Medical History Cardiac Medical History: Reports: Hx Hypercholesterolemia, Hx Hypertension Endocrine Medical History: Reports: Hx Diabetes Mellitus Type 2 Renal/ Medical History: Denies: Hx Peritoneal Dialysis Psychiatric Medical History: Reports: Hx Dementia - Immunizations Immunizations up to date: Yes Hx Diphtheria, Pertussis, Tetanus Vaccination: Yes Review of Systems - Review of Systems Notes: REVIEW OF SYSTEMS: Per EMS CONSTITUTIONAL : Denies fever, chills, or sweats. Denies recent illness. EENT: Denies eye, ear, throat, or mouth pain or symptoms. Denies nasal or sinus congestion or discharge. Denies throat, tongue, or mouth swelling or difficulty swallowing. CARDIOVASCULAR: Denies chest pain. Denies palpitations or racing or irregular heart beat. Denies ankle edema. RESPIRATORY: Denies cough, cold, or chest congestion. Denies shortness of breath, difficulty breathing, or wheezing. GASTROINTESTINAL: Denies abdominal pain or distention. Denies nausea, vomiting , or diarrhea. Denies blood in vomitus, stools, or per rectum. Denies black, tarry stools. Denies constipation. GENITOURINARY: Denies difficulty urinating, painful urination, burning, frequency, blood in urine, or discharge. MUSCULOSKELETAL: Denies back or neck pain or stiffness. Denies joint pain or swelling. SKIN: Denies rash, lesions or sores. HEMATOLOGIC : Denies easy bruising or bleeding. LYMPHATIC: Denies swollen, enlarged glands. NEUROLOGICAL: History dementia PSYCHIATRIC: Denies anxiety or stress. Denies depression, suicidal ideation, or homicidal ideation. ALL OTHER SYSTEMS REVIEWED AND NEGATIVE. Dictation was performed using [employer] voice recognition software PHYSICAL EXAMINATION: GENERAL: Well-appearing, well-nourished and in no acute distress. HEAD: Atraumatic, normocephalic. EYES: Pupils equal round and reactive to light, extraocular movements intact, sclera anicteric, conjunctiva are normal. ENT: Nares patent, oropharynx clear without exudates. Moist mucous membranes. NECK: Normal range of motion, supple without lymphadenopathy LUNGS: Breath sounds clear to auscultation bilaterally and equal. No wheezes rales or rhonchi. HEART: Regular rate and rhythm without murmurs ABDOMEN: Soft, nontender, nondistended abdomen. No guarding, no rebound. No masses appreciated. Musculoskeletal: Normal range of motion, no pitting or edema. No cyanosis. NEUROLOGICAL: Cranial nerves grossly intact. Normal speech Normal sensory, motor exams patient oriented to person PSYCH: Normal mood, normal affect. SKIN: Ecchymosis from previous falls Course - Re-evaluation Re-evalutation: 06/12/17 06:27 This is an unfortunate dementia patient who keeps getting sent back to the emergency department for social reasons. There are no medical concerns at this time 06/12/17 09:33 Patient was given medical screening examination is stable will be discharged back to his house After performing a Medical Screening Examination, I estimate there is LOW risk for ACUTE CORONARY SYNDROME, PULMONARY EMBOLI, RESPIRATORY FAILURE, SEPSIS OR MENINGITIS, thus I consider the discharge disposition reasonable. I have reevaluated this patient multiple times and no significant life threatening changes are noted. The patient and I have discussed the diagnosis and risks, and we agree with discharging home with close follow-up. We also discussed returning to the Emergency Department immediately if new or worsening symptoms occur. We have discussed the symptoms which are most concerning (e.g., changing or worsening pain, trouble swallowing or breathing, neck stiffness, fever) that necessitate immediate return. Pt does have dementia therefore I expect to send him back if these issues due arise. Discharge - Discharge Clinical Impression: Dementia Qualifiers: Dementia type: unspecified type Dementia behavioral disturbance: with behavioral disturbance Qualified Code(s): F03.91 - Unspecified dementia with behavioral disturbance Condition: Stable Disposition: HOME, SELF-CARE Instructions: Dementia ([facility]) Additional Instructions: Follow up with your physician tomorrow for further care or return to the ED IMMEDIATELY if symptoms worsen or new concerns occur. If you cannot afford to follow up with your primary care physician a list of low cost clinics have been provided at the end of your discharge papers as well.
[2017-06-12 09:34] VITALS: BP 123/78
== END 2017-06-12 09:33 | disposition home or self-care (01) ==
LOC: ER 06:19
DX: F03.91 Unspecified dementia, unspecified severity, with behavioral disturbance (principal)
CPT/HCPCS: 99284

== ENCOUNTER 2017-06-12 10:52 | Emergency (ER) | payer MEDICARE ==
[2017-06-12 11:25] VITALS: BP 121/80
--- NOTE | 2017-06-12 11:25 | ER Document Report ---
ED General - General Chief Complaint: Other Stated Complaint: CHECK UP Time Seen by Provider: 06/12/17 10:55 Mode of Arrival: Medic Information source: Emergency Med Personnel Notes: 77-year-old male history of dementia who was seen by myself just an hour prior presents back to the emergency department because his is not home to accept him. Patient has no complaints and was brought back to the emergency department for reevaluation TRAVEL OUTSIDE OF THE [place] IN LAST 30 DAYS: No - HPI Onset: Just prior to arrival Onset/Duration: Sudden Quality of pain: No pain Severity: None Pain Level: Denies Associated symptoms: None Exacerbated by: Denies Relieved by: Denies Similar symptoms previously: Yes Recently seen / treated by doctor: Yes - Related Data Allergies/Adverse Reactions: No Known Allergies Allergy (Verified 06/04/17 12:24) Past Medical History - Social History Smoking Status: Never Smoker Cigarette use (# per day): No Chew tobacco use (# tins/day): No Smoking Education Provided: No Family History: Reviewed & Not Pertinent - Past Medical History Cardiac Medical History: Reports: Hx Hypercholesterolemia, Hx Hypertension Endocrine Medical History: Reports: Hx Diabetes Mellitus Type 2 Renal/ Medical History: Denies: Hx Peritoneal Dialysis Psychiatric Medical History: Reports: Hx Dementia - Immunizations Immunizations up to date: Yes Hx Diphtheria, Pertussis, Tetanus Vaccination: Yes Review of Systems - Review of Systems Notes: REVIEW OF SYSTEMS: CONSTITUTIONAL : Denies fever, chills, or sweats. Denies recent illness. EENT: Denies eye, ear, throat, or mouth pain or symptoms. Denies nasal or sinus congestion or discharge. Denies throat, tongue, or mouth swelling or difficulty swallowing. CARDIOVASCULAR: Denies chest pain. Denies palpitations or racing or irregular heart beat. Denies ankle edema. RESPIRATORY: Denies cough, cold, or chest congestion. Denies shortness of breath, difficulty breathing, or wheezing. GASTROINTESTINAL: Denies abdominal pain or distention. Denies nausea, vomiting , or diarrhea. Denies blood in vomitus, stools, or per rectum. Denies black, tarry stools. Denies constipation. GENITOURINARY: Denies difficulty urinating, painful urination, burning, frequency, blood in urine, or discharge. MUSCULOSKELETAL: Denies back or neck pain or stiffness. Denies joint pain or swelling. SKIN: Denies rash, lesions or sores. HEMATOLOGIC : Denies easy bruising or bleeding. LYMPHATIC: Denies swollen, enlarged glands. NEUROLOGICAL: Patient has dementia PSYCHIATRIC: Denies anxiety or stress. Denies depression, suicidal ideation, or homicidal ideation. ALL OTHER SYSTEMS REVIEWED AND NEGATIVE. Dictation was performed using [employer] voice recognition software PHYSICAL EXAMINATION: GENERAL: Well-appearing, well-nourished and in no acute distress. HEAD: Atraumatic, normocephalic. EYES: Pupils equal round and reactive to light, extraocular movements intact, sclera anicteric, conjunctiva are normal. ENT: Nares patent, oropharynx clear without exudates. Moist mucous membranes. NECK: Normal range of motion, supple without lymphadenopathy LUNGS: Breath sounds clear to auscultation bilaterally and equal. No wheezes rales or rhonchi. HEART: Regular rate and rhythm without murmurs ABDOMEN: Soft, nontender, nondistended abdomen. No guarding, no rebound. No masses appreciated. Musculoskeletal: Normal range of motion, no pitting or edema. No cyanosis. NEUROLOGICAL: Cranial nerves grossly intact. Normal speech normal sensation motor exam PSYCH: Normal mood, normal affect. SKIN: Warm, Dry, normal turgor, no rashes or lesions noted. Physical Exam - Vital signs Vitals: Temp Pulse Resp BP Pulse Ox 97.5 F 85 16 121/80 98 06/12/17 11:20 06/12/17 11:20 06/12/17 11:20 06/12/17 11:20 06/12/17 11:20 Course - Re-evaluation Re-evalutation: 06/12/17 16:19 Patient was evaluated again and was medically cleared, I will keep him in the emergency department until we are able to contact his to take him home he sat with nurse and watched the prices right and ate cookies After performing a Medical Screening Examination, I estimate there is LOW risk for ACUTE CORONARY SYNDROME, PULMONARY EMBOLI, RESPIRATORY FAILURE, SEPSIS OR MENINGITIS, thus I consider the discharge disposition reasonable. I have reevaluated this patient multiple times and no significant life threatening changes are noted. The patient and I have discussed the diagnosis and risks, and we agree with discharging home with close follow-up. We also discussed returning to the Emergency Department immediately if new or worsening symptoms occur. We have discussed the symptoms which are most concerning (e.g., changing or worsening pain, trouble swallowing or breathing, neck stiffness, fever) that necessitate immediate return. Given the patient has history of dementia I do expect to send him back if there are any other concerns - Vital Signs Vital signs: Temp Pulse Resp BP Pulse Ox 97.5 F 85 16 121/80 98 06/12/17 11:47 06/12/17 11:47 06/12/17 11:47 06/12/17 11:47 06/12/17 11:47 Discharge - Discharge Clinical Impression: Dementia Qualifiers: Dementia type: unspecified type Dementia behavioral disturbance: with behavioral disturbance Qualified Code(s): F03.91 - Unspecified dementia with behavioral disturbance Condition: Stable Disposition: HOME, SELF-CARE Additional Instructions: Return immediately if there are any other concerns
== END 2017-06-12 12:49 | disposition home or self-care (01) ==
LOC: ER 10:52
DX: F03.91 Unspecified dementia, unspecified severity, with behavioral disturbance (principal)
CPT/HCPCS: 99284

== ENCOUNTER 2017-06-23 14:10 | Emergency (ER) | payer MEDICARE ==
--- NOTE | 2017-06-23 14:56 | ER Document Report ---
ED General - General Chief Complaint: Psych Problem Stated Complaint: COMBATIVE Time Seen by Provider: 06/23/17 14:27 Notes: 77 mm male presents from the facility with aggressive behavior and possible suicidal ideation. Patient is well-known to this emergency department has been seen multiple times for dementia and behavioral issues and was recently placed. He is denying suicidal ideation to me but cannot give much further history secondary to dementia. He is animated and slightly agitated in the emergency department. I reviewed his past records including a recent psych consult which adjusted his medications. TRAVEL OUTSIDE OF THE [place] IN LAST 30 DAYS: No - Related Data Allergies/Adverse Reactions: No Known Allergies Allergy (Verified 06/04/17 12:24) Past Medical History - Social History Smoking Status: Never Smoker Chew tobacco use (# tins/day): No Frequency of alcohol use: None Drug Abuse: None Family History: Reviewed & Not Pertinent Patient has suicidal ideation: No Patient has homicidal ideation: No - Past Medical History Cardiac Medical History: Reports: Hx Hypercholesterolemia, Hx Hypertension Endocrine Medical History: Reports: Hx Diabetes Mellitus Type 2 Renal/ Medical History: Denies: Hx Peritoneal Dialysis Psychiatric Medical History: Reports: Hx Dementia - Immunizations Immunizations up to date: Yes Hx Diphtheria, Pertussis, Tetanus Vaccination: Yes Review of Systems - Review of Systems Notes: \ PHYSICAL EXAMINATION General: No acute distress, well-nourished Head: Healing bruise to right tenriism, normocephalic ENT: Mouth normal, oropharynx moist, no exudates or tonsillar enlargement Eyes: Conjunctiva normal, pupils equal, lids normal Neck: No JVD, supple, no guarding CVS: Normal rate, regular rhythm, no murmurs Resp: No resp distress, equal and normal breath sounds bilaterally GI: Nondistended, soft, no tenderness to palpation, no rebound or guarding Ext: No deformities, no edema, normal range of motion in upper and lower ext Back: No CVA or midline TTP Skin: No rash, warm Lymphatic: No lymphadeopathy noted Neuro: Awake, alert. Face symmetric. Does not know the year where he is. -: Yes ROS unobtainable due to patient's medical condition Physical Exam - Vital signs Vitals: Temp Pulse Resp BP Pulse Ox 98.3 F 78 20 109/76 96 06/23/17 14:15 06/23/17 14:15 06/23/17 14:15 06/23/17 14:15 06/23/17 14:15 Course - Re-evaluation Re-evalutation: 06/23/17 14:55 Chronic dementia patient presents with behavioral outbursts. He is a little bit agitated. He has evidence of head trauma although it seems to be not recent. I spoke at length with social media community manager and behavioral health screener who stated the patient's typically not being put on the medicines that are recommended by psychiatry. We reviewed his medication list. I think that there is an adequate examination for his behavioral change given that he is not on the proper medications. I do not think he has a subdural or other metabolic problem causing his behavior. I do not think he needs IVC criteria and would be best served back at his facility. 06/23/17 14:57 06/23/17 19:13 Came more agitated. He was given Haldol. I reconsidered and scan his head and it was negative. He required additional dose of Geodon. Never needed he states that he expressed suicidal ideation in fact he denied it. Spoke with psychiatric team and they spoke with the facility. Please see psychiatric note. Think the patient does not require IVC and is safe in his facility. They were supposed to be giving him a whole list of psych meds but they are not. I prescribed is using a written prescription pad. Patient was transported back to facility - Vital Signs Vital signs: Temp Pulse Resp BP Pulse Ox 98.3 F 78 20 109/76 96 06/23/17 19:05 06/23/17 14:15 06/23/17 19:05 06/23/17 14:15 06/23/17 19:05 Critical Care Note - Critical Care Note Total time excluding time spent on procedures (mins): 32 Comments: The above patient is critically ill. Not including procedures, but including direct re-evaluations, speaking with patient and/or consultants, interpreting results, and documenting, I spent the total amount of minute listed listed above on critical care time Discharge - Discharge Clinical Impression: Agitation Condition: Good Disposition: HOME, SELF-CARE Instructions: Dementia ([facility])
[2017-06-23] MEDS ORDERED: HALOPERIDOL LACTATE INJ 5 MG/1 ML VIAL IM ONE (14:59)
--- NOTE | 2017-06-23 15:25 | PSYCHOLOGICAL NOTE ---
Psych Note - Psych Note Psych Note: Reason for Consult: Dementia Consents given: None Patient is a 77 year old man who presented to the Emergency Department via EMS from [facility]. Triage note indicated the facility sent him to the Emergency Department because he was combative and making suicidal statements. No additional history can be obtained as the patient is profoundly demented and is disoriented. MAR review indicated patient was on Citalopram 10 mg daily (in addition to medications related to medical issues). Patient has been formally diagnosed with dementia. Psychiatric provider with [facility] made the following recommendations: D/C Citalopram Start Depakote 500 BID Start Buspar 5 mg Q8am and 10mg Q3pm Start Clonidine 0.2mg patch PRN This dental technician apprentice spoke with [employer] manager, Amanda Lu and track grinder, Lo Molina to ask about patient's medications. They indicated the patient had been admitted on 06/19/2017 and the Emergency Department's multiple recommendations of the above medications was not in his medication list. The ct manager stated that she would need "hard scripts to initiate the medications." They also stated that the patient was having moments of lucidity and during those moments he was realizing being in the facility was "his life now." When asked about the suicidal statements, they said he stated he wanted to "shoot" himself and asked for a gun. This dental technician apprentice discussed not having access to means to carry out the stated plan. They responded by saying he did have access to the tubing from the blood pressure cuffs and the fire extinguishers if he chose to hurt himself with those items. This dental technician apprentice asked if the patient had made statements about hurting himself with those objects and the facility staff denied he had made any statements about using those objects to hurt himself. Please also note, research indicates, antipsychotics and benzodiazepines serve to increase symptoms in neurocognitive disorders, to include increased irritability, psychosis, aggression, etc. Patient is considered psychiatrically cleared.
[2017-06-23] MEDS ORDERED: ZIPRASIDONE MESYLATE INJ/PF 20 MG SDV IM ONE (16:27)
--- NOTE | 2017-06-23 18:01 | RADIOLOGY REPORT (SQ) ---
EXAM DESCRIPTION: CT HEAD WITHOUT COMPLETED DATE/TIME: 06/23/2017 5:42 pm REASON FOR STUDY: behavioral change, trauma COMPARISON: 06/08/2017 TECHNIQUE: Axial images acquired through the brain without intravenous contrast. Images reviewed wi th bone, brain and subdural windows. Images stored on PACS. All CT scanners at this facility use dose modulation, iterative reconstruction, and/or weight based d osing when appropriate to reduce radiation dose to as low as reasonably achievable (ALARA). [facility]: Dose Right [facility]: CareDose [facility]: Dose Right [facility]: Teradose 4D [facility]: Smart OzVision RADIATION DOSE: CT Rad equipment meets quality standard of care and radiation dose reduction techniq ues were employed. CTDIvol: 64.6 mGy. DLP: 1163 mGy-cm.mGy. LIMITATIONS: None. FINDINGS: VENTRICLES: Prominent. CEREBRUM: No masses. No hemorrhage. No midline shift. Areas of low density in the white matter mos t likely due to chronic micro-vascular ischemic change. No evidence for acute infarction. Nearly co mplete clearing of the previously noted right temporal frontal subdural hematoma within cortical burkett ges persisting. No new hemorrhage identified. CEREBELLUM: No masses. No hemorrhage. No alteration of density. No evidence for acute infarction. EXTRAAXIAL SPACES: Age-related involutional change. No fluid collections. No masses. ORBITS AND GLOBE: No intra- or extraconal masses. Normal contour of globe without masses. CALVARIUM: No fracture. PARANASAL SINUSES: No fluid or mucosal thickening. SOFT TISSUES: Scalp changes again noted on the right. OTHER: No other significant finding. IMPRESSION: CHRONIC CHANGES OF ATROPHY AND MICROVASCULAR ISCHEMIA. NO ACUTE PROCESS. EVIDENCE OF ACUTE STROKE: NO. COMMENT: Nearly complete clearing of the previously noted right temporoparietal subdural hematoma. TECHNICAL DOCUMENTATION: JOB ID: [id number] Quality ID # [id number]: Final reports with documentation of one or more dose reduction techniques (e.g., Au tomated exposure control, adjustment of the mA and/or kV according to patient size, use of iterative reconstruction technique) 2010 [employer]- All Rights Reserved
[2017-06-23 19:20] VITALS: BP 119/56
== END 2017-06-23 19:10 | disposition home or self-care (01) ==
LOC: ER 14:10
DX: R45.1 Restlessness and agitation (principal); E78.00 Pure hypercholesterolemia, unspecified; I10 Essential (primary) hypertension; E11.9 Type 2 diabetes mellitus without complications
CPT/HCPCS: 99291; 96372; 70450; J1630; J3486

== ENCOUNTER 2017-08-08 07:37 | Emergency (ER) | payer MEDICARE ==
[2017-08-08] MEDS ORDERED: DIPHENHYDRAMINE HCL 50 MG/ML VIAL IM ONE (08:09)
[2017-08-08] MEDS ORDERED: HALOPERIDOL LACTATE INJ 5 MG/1 ML VIAL IM ONE (08:09)
--- NOTE | 2017-08-08 08:17 | ER Document Report ---
ED General - General Stated Complaint: FALL HEAD INJURY Time Seen by Provider: 08/08/17 08:14 TRAVEL OUTSIDE OF THE [place] IN LAST 30 DAYS: No - HPI Patient complains to provider of: Fall head injury Notes: Patient coming in for evaluation after a fall. According to EMS report and nursing staff patient sitting in a wheelchair when he fell hitting his head. No loss consciousness. Patient otherwise very well-known to this provider multiple visits to the ER for falls and head injuries. Patient normally is combative. This is state today patient is lying in stretcher taking the rales. Patient stating that he wants to go home. Patient otherwise is confused and does look to be his baseline. Patient cannot contribute anything to the HPI. - Related Data Allergies/Adverse Reactions: No Known Allergies Allergy (Verified 06/04/17 12:24) Past Medical History - Social History Smoking Status: Unknown if Ever Smoked Family History: Reviewed & Not Pertinent - Past Medical History Cardiac Medical History: Reports: Hx Hypercholesterolemia, Hx Hypertension Endocrine Medical History: Reports: Hx Diabetes Mellitus Type 2 Renal/ Medical History: Denies: Hx Peritoneal Dialysis Psychiatric Medical History: Reports: Hx Dementia - Immunizations Immunizations up to date: Yes Hx Diphtheria, Pertussis, Tetanus Vaccination: Yes Review of Systems - Review of Systems -: Yes ROS unobtainable due to patient's medical condition - Dementia Physical Exam - Vital signs Vitals: Temp Pulse Resp BP Pulse Ox 98.9 F 80 18 132/64 H 97 08/08/17 07:37 08/08/17 07:37 08/08/17 07:37 08/08/17 07:37 08/08/17 07:37 Interpretation: Normal - General General appearance: Appears well, Alert - HEENT Head: Normocephalic, Atraumatic Eyes: Normal Pupils: PERRL - Respiratory Respiratory status: No respiratory distress Chest status: Nontender Breath sounds: Normal Chest palpation: Normal - Cardiovascular Rhythm: Regular Heart sounds: Normal auscultation Murmur: No - Abdominal Inspection: Normal Distension: No distension Bowel sounds: Normal Tenderness: Nontender Organomegaly: No organomegaly - Back Back: Normal, Nontender - Extremities General upper extremity: Normal inspection, Nontender, Normal color, Normal ROM , Normal temperature General lower extremity: Normal inspection, Nontender, Normal color, Normal ROM , Normal temperature - Neurological Neuro grossly intact: Yes Cognition: Normal Abdi Coma Scale Eye Opening: Spontaneous Abdi Coma Scale Verbal: Confused Abdi Coma Scale Motor: Obeys [place] Coma Scale Total: 14 Motor strength normal: LUE, RUE, LLE, RLE Sensory: Normal - Psychological Associated symptoms: Normal affect, Normal mood - Skin Skin Temperature: Warm Skin Moisture: Dry Skin Color: Normal Course - Re-evaluation Re-evalutation: 08/08/17 14:48 No signs of overt trauma on patient's evaluation. No tenderness to any therapy. Patient was given Haldol and Benadryl as that he normally is very combative toward staff. At this time do not see a need to CAT scan the patient patient's moving all 4 extremities no signs of significant trauma. Pupils equal round reactive. Patient will be discharged back to the long-term. - Vital Signs Vital signs: Temp Pulse Resp BP Pulse Ox 98.7 F 76 18 128/70 H 96 08/08/17 08:41 08/08/17 08:41 08/08/17 08:41 08/08/17 08:41 08/08/17 08:41 Discharge - Discharge Clinical Impression: DNR (do not resuscitate) Fall Qualifiers: Encounter type: initial encounter Qualified Code(s): W19.XXXA - Unspecified fall, initial encounter Head injury Qualifiers: Encounter type: initial encounter Qualified Code(s): S09.90XA - Unspecified injury of head, initial encounter Condition: Stable Disposition: HOME-SNF (ED ONLY) Additional Instructions: Patient was examined the ER no signs of significant trauma seen on the patient' s physical examination. Patient is very well-known to this provider patient is basically his baseline. Moving all 4 extremities ocular examination normal. No signs of any acute pathology. Patient will be discharged back to follow-up with his PCP as needed. Please continue home medications as prescribed. Referrals: KAILASH BANUELOS MD [Primary Care Provider] - Follow up as needed
[2017-08-08 08:57] VITALS: BP 128/70
== END 2017-08-08 08:57 ==
LOC: ER 07:37
DX: S09.90XA Unspecified injury of head, initial encounter (principal); W05.0XXA Fall from non-moving wheelchair, initial encounter; Z66 Do not resuscitate; E78.00 Pure hypercholesterolemia, unspecified; I10 Essential (primary) hypertension; E11.9 Type 2 diabetes mellitus without complications
CPT/HCPCS: 99284; J1200; J1630

== ENCOUNTER 2017-08-10 12:44 | Emergency (ER) | payer MEDICAID, MEDICARE ==
--- NOTE | 2017-08-10 14:10 | ER Document Report ---
ED General - General Mode of Arrival: Wheelchair Information source: Patient TRAVEL OUTSIDE OF THE [place] IN LAST 30 DAYS: No - General Chief Complaint: Arm Injury Stated Complaint: ARM INJURY Time Seen by Provider: 08/10/17 13:38 Notes: Patient is a 77 year old male presenting to the emergency department via EMS from [place] due to a fall 2 days ago. states the patient hit his head when he fell and was sent to the emergency department where the patient was discharged. The patient returned today with reports of a fracture to the right elbow. also complains of decreased appetite. denies any other fall after the initial one or any other illness. Patient does not answer questions at bedside due to having dementia. (WILDER ALY) - Related Data Allergies/Adverse Reactions: No Known Allergies Allergy (Verified 06/04/17 12:24) Past Medical History - General Information source: Relative - Social History Smoking Status: Former Smoker Chew tobacco use (# tins/day): No Frequency of alcohol use: None Drug Abuse: None Family History: Reviewed & Not Pertinent Patient has suicidal ideation: No Patient has homicidal ideation: No - Past Medical History Cardiac Medical History: Reports: Hx Hypercholesterolemia, Hx Hypertension Endocrine Medical History: Reports: Hx Diabetes Mellitus Type 2 Psychiatric Medical History: Reports: Hx Dementia - Immunizations Immunizations up to date: Yes Hx Diphtheria, Pertussis, Tetanus Vaccination: Yes Review of Systems - Review of Systems Constitutional: No symptoms reported EENT: No symptoms reported Cardiovascular: No symptoms reported Respiratory: No symptoms reported Gastrointestinal: See HPI, Poor appetite Genitourinary: No symptoms reported Male Genitourinary: No symptoms reported Musculoskeletal: No symptoms reported Skin: No symptoms reported Hematologic/Lymphatic: No symptoms reported Neurological/Psychological: No symptoms reported -: Yes All other systems reviewed and negative - Review of Systems Notes: ROS per . (WILDER ALY) Physical Exam - General General appearance: Appears well, Alert In distress: None - HEENT Head: Normocephalic, Atraumatic Eyes: Normal Conjunctiva: Normal Pupils: PERRL - Respiratory Respiratory status: No respiratory distress Chest status: Nontender Breath sounds: Normal Chest palpation: Normal - Abdominal Inspection: Normal Distension: No distension Bowel sounds: Normal Tenderness: Nontender Organomegaly: No organomegaly - Back Back: Normal - Extremities General upper extremity: Normal inspection, Normal ROM General lower extremity: Normal inspection, Normal ROM - Psychological Associated symptoms: Normal affect, Normal mood - Skin Skin Temperature: Warm Skin Moisture: Dry Skin Color: Normal - Vital signs Vitals: Temp Pulse Resp BP Pulse Ox 98.9 F 75 20 106/54 L 99 08/10/17 13:03 08/10/17 13:03 08/10/17 13:03 08/10/17 13:03 08/10/17 13:03 - General Notes: Does not answer questions. (WILDER ALY) - Neurological Notes: Patient is demented and does not answer questions. (WILDER ALY) Course - Re-evaluation Re-evalutation: 08/10/17 14:10 Discussed with patient's deferment of scanning patient's head. Patient did fall several days ago and hit his head but she states that if he did have any life-threatening bleed no intervention would be warranted therefore management would not change by obtaining CT head and therefore will be deferred. (SOPHIE SALOMON) - Vital Signs Vital signs: Temp Pulse Resp BP Pulse Ox 99 F 75 16 107/50 L 98 08/10/17 15:59 08/10/17 15:59 08/10/17 15:59 08/10/17 15:59 08/10/17 15:59 Discharge - Discharge Clinical Impression: Strain of right elbow Qualifiers: Encounter type: initial encounter Qualified Code(s): S56.911A - Strain of unspecified muscles, fascia and tendons at forearm level, right arm, initial encounter Condition: Stable Disposition: HOME, SELF-CARE Additional Instructions: Please return to the emergency department if you have any new, prolonged or worsening symptoms. Referrals: VALORIE SHANE, IMPLEMENTATION COORDINATOR [Primary Care Provider] - Follow up as needed Scribe Attestation: 08/11/17 09:31 I personally performed the services described documentation, reviewed and edited the documentation which was dictated to describe my presence, and it accurately records my words and actions. (SOPHIE SALOMON) Scribe Documentation - Scribe Written by Scribe:: Wilder Aly. Linaibe, 08/10/2017 14:26 acting as scribe for :: Arnol
--- NOTE | 2017-08-10 14:46 | RADIOLOGY REPORT (SQ) ---
EXAM DESCRIPTION: ELBOW RIGHT OVER 2 VIEWS COMPLETED DATE/TIME: 08/10/2017 2:27 pm REASON FOR STUDY: elbow pain, eval for fx COMPARISON: None. NUMBER OF VIEWS: Four views. TECHNIQUE: AP, lateral, and both oblique radiographic images acquired of the right elbow. LIMITATIONS: None. FINDINGS: MINERALIZATION: Normal. BONES: There is a bony exostosis noted from the posterior medial aspect of the proximal right radius. JOINT: No effusion. SOFT TISSUES: No soft tissue swelling. No foreign body. OTHER: Traction osteophyte from the olecranon. IMPRESSION: Bony exostosis from posteromedial aspect of proximal right radius. Otherwise, normal ri ght elbow. TECHNICAL DOCUMENTATION: JOB ID: [id number] [id number] [employer]- All Rights Reserved
[2017-08-10 16:20] VITALS: BP 107/50
== END 2017-08-10 16:08 | disposition home or self-care (01) ==
LOC: ER 12:44
DX: S56.911A Strain of unspecified muscles, fascia and tendons at forearm level, right arm, initial encounter (principal); R63.0 Anorexia; W19.XXXA Unspecified fall, initial encounter; Z87.891 Personal history of nicotine dependence
CPT/HCPCS: 99283

== ENCOUNTER 2017-09-07 06:11 | Emergency (ER) | payer MEDICARE ==
[2017-09-07] MEDS ORDERED: MORPHINE SULFATE 10 MG/ML INJ IV ONE (06:29)
--- NOTE | 2017-09-07 06:29 | ER Document Report ---
ED General - General Chief Complaint: Rectal Bleeding Stated Complaint: RECTAL BLEED Time Seen by Provider: 09/07/17 06:16 Information source: Law Enforcement Notes: Patient is a 77-year-old male, past medical history end-stage dementia, [facility] after he had rectal bleeding earlier in the night. Patient takes a baby aspirin daily. He is a hospice patient and has a confirmed DNR/DNI. Patient's mental status is at baseline per EMS and [facility] paperwork. Unable to provide any additional history. TRAVEL OUTSIDE OF THE [place] IN LAST 30 DAYS: No - Related Data Allergies/Adverse Reactions: No Known Allergies Allergy (Verified 06/04/17 12:24) Past Medical History - General Information source: Law Enforcement, Outside Facility Records Cannot obtain history due to: Dementia - Social History Smoking Status: Unknown if Ever Smoked Family History: Reviewed & Not Pertinent - Past Medical History Cardiac Medical History: Reports: Hx Hypercholesterolemia, Hx Hypertension Endocrine Medical History: Reports: Hx Diabetes Mellitus Type 2 Renal/ Medical History: Denies: Hx Peritoneal Dialysis Psychiatric Medical History: Reports: Hx Dementia - Immunizations Immunizations up to date: Yes Hx Diphtheria, Pertussis, Tetanus Vaccination: Yes Review of Systems - Review of Systems -: Yes ROS unobtainable due to patient's medical condition Gastrointestinal: Rectal bleeding Physical Exam - Vital signs Vitals: Resp 34 H 09/07/17 06:17 - Notes Notes: PHYSICAL EXAMINATION: GENERAL: Ill-appearing. HEAD: Atraumatic, normocephalic. EYES: Pupils equal round and reactive to light, sclera anicteric. ENT: nares patent, oropharynx clear without exudates. Dry mucous membranes. NECK: Normal range of motion, supple without lymphadenopathy LUNGS: Coarse breath sounds. HEART: Regular rate and rhythm without murmurs ABDOMEN: Soft, nontender, normoactive bowel sounds. No guarding, no rebound. No masses appreciated. RECTAL: Gross red blood. EXTREMITIES: Normal range of motion, no pitting or edema. No cyanosis. NEUROLOGICAL: Withdraws to panful stimulation. SKIN: Pale, warm. Course - Re-evaluation Re-evalutation: Patient with rectal bleeding and hypotension. 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 Patient has confirmed DNR/DNI at bedside. 09/07/17 06:43 Spoke to patient's , Martha Waterman, about his critical state and goals of care. She said that patient would not want life saving measures due to his advanced dementia. She is driving into the hospital and will arrive in about 30 minutes. 09/07/17 07:30 in ED. Spoke to her about multiorgan failure and his wishes again. She agrees to make patient comfort care without aggressive treatment for his septic shock. This is a reasonable plan. 09/07/17 09:01 Hospice nurses in ER. Patient already has a comfort kit at [facility]. They are just requesting a prescription for scopolamine patches. Will discharge patient back to [facility] under comfort care. Pt appears comfortable and is in no acute distress. - Vital Signs Vital signs: Temp Pulse Resp BP Pulse Ox 25 H 70/43 L 90 L 09/07/17 06:38 09/07/17 06:38 09/07/17 06:38 - Laboratory Result Diagrams: 09/07/17 06:26 09/07/17 06:26 Laboratory results interpreted by me: 09/07/17 09/07/17 09/07/17 06:26 06:26 06:26 WBC 18.4 H RBC 4.27 L Hgb 13.1 L MCV 98 H D MCHC 31.2 L RDW 16.6 H Seg Neuts % (Manual) 91 H Lymphocytes % (Manual) 6 L Abs Neuts (Manual) 16.7 H VBG pH Sodium 165.6 H Potassium 5.7 H Chloride 115 H Anion Gap 27 H BUN 239 H Creatinine 5.77 H Est GFR ( Amer) 12 L Est GFR (Non-Af Amer) 10 L Glucose 606 H* Lactic Acid 2.7 H Direct Bilirubin 0.7 H AST 60 H Alkaline Phosphatase 167 H 09/07/17 06:26 WBC RBC Hgb MCV MCHC RDW Seg Neuts % (Manual) Lymphocytes % (Manual) Abs Neuts (Manual) VBG pH 7.28 L Sodium Potassium Chloride Anion Gap BUN Creatinine Est GFR ( Amer) Est GFR (Non-Af Amer) Glucose Lactic Acid Direct Bilirubin AST Alkaline Phosphatase - Diagnostic Test Radiology reviewed: Image reviewed, Reports reviewed Radiology results interpreted by me: CXR: moderate right infrahilar pneumonia - EKG Interpretation by Me EKG shows normal: Sinus rhythm, [place], Intervals, QRS Complexes, ST-T Waves Rate: Normal Critical Care Note - Critical Care Note Total time excluding time spent on procedures (mins): 45 Discharge - Discharge Clinical Impression: Rectal bleeding, Multiorgan failure, Septic shock, Hyperglycemia Pneumonia Qualifiers: Pneumonia type: due to unspecified organism Laterality: right Lung location: unspecified part of lung Qualified Code(s): J18.9 - Pneumonia, unspecified organism Condition: Poor Disposition: HOME, SELF-CARE Prescriptions: Scopolamine [Transderm-Scop] 1 each TD Q72H PRN #10 patch.td.[email or web address] PRN Reason:
[2017-09-07] MEDS: NORMAL SALINE 1000 ML 1,000 ML IV PRN ×2 (06:37→07:20)
[2017-09-07 06:46] LABS: HEMATOCRIT 41.9 % (37.9-51.0); HEMOGLOBIN 13.1 g/dL (13.5-17.0); MEAN CORPUSCULAR HEMOGLOBIN 30.6 pg (27.0-33.4); MEAN CORPUSCULAR HGB CONC 31.2 g/dL (32.0-36.0); PLATELET COUNT 365 10^3/uL (150-450); RED BLOOD COUNT 4.27 10^6/uL (4.35-5.55); RED CELL DISTRIBUTION WIDTH 16.6 % (11.5-14.0); VENOUS BLOOD BASE EXCESS -2.4 mmol/L; VENOUS BLOOD HCO3 25.2 mmol/L (20-32); VENOUS BLOOD PCO2 55.1 mmHg (35-63); VENOUS BLOOD PH 7.28 (7.30-7.42); WHITE BLOOD COUNT 18.4 10^3/uL (4.0-10.5)
[2017-09-07 06:52] VITALS: BP 70/43
[2017-09-07] MEDS ORDERED: SCOPOLAMINE HYDROBROMIDE 1.5 MG PATCH.TD72 TD ONE (06:59)
[2017-09-07 07:02] LABS: ALANINE AMINOTRANSFERASE 68 U/L (21-72); ALBUMIN 3.6 g/dL (3.5-5.0); ALKALINE PHOSPHATASE 167 U/L (38-126); ASPARTATE AMINO TRANSFERASE 60 U/L (17-59); BILIRUBIN,DIRECT 0.7 mg/dL (0.0-0.4); BILIRUBIN,TOTAL 0.7 mg/dL (0.2-1.3); CALCIUM 9.6 mg/dL (8.4-10.2); CARBON DIOXIDE 24 mmol/L (22-30); CHLORIDE 115 mmol/L (98-107); POTASSIUM 5.7 mmol/L (3.6-5.0); TOTAL PROTEIN 7.3 g/dL (6.3-8.2)
--- NOTE | 2017-09-07 07:02 | RADIOLOGY REPORT (SQ) ---
EXAM DESCRIPTION: CHEST SINGLE VIEW CLINICAL HISTORY: 77 years Male, septic COMPARISON: ..17 NUMBER OF VIEWS/TECHNIQUE: 1/AP LIMITATIONS: None. FINDINGS: Moderate infrahilar patchiness, normal cardiac silhouette, median sternotomy, and moderate osteoarthritis. IMPRESSION: Moderate right infrahilar pneumonia. Recommend CR/CT surveillance including at 7-12 weeks following initiation of clinically warranted therapy.
[2017-09-07 07:10] LABS: SODIUM 165.6 mmol/L (137-145)
[2017-09-07 07:12] LABS: ANION GAP 27 (5-19); BLOOD UREA NITROGEN 239 mg/dL (7-20)
[2017-09-07] MEDS ORDERED: FENTANYL CITRATE INJ/PF 100 MCG/2 ML AMPUL IV ONE (07:14)
[2017-09-07] MEDS ORDERED: LORAZEPAM INJ 2 MG/1 ML VIAL IV ONE (07:14)
[2017-09-07 07:16] LABS: GLUCOSE 606 mg/dL (75-110)
[2017-09-07 07:32] LABS: MEAN CORPUSCULAR VOLUME 98 fl (80-97)
[2017-09-07 07:36] LABS: ABSOLUTE LYMPHOCYTES# (MANUAL) 1.1 10^3/uL (0.5-4.7); ABSOLUTE MONOCYTES # (MANUAL) 0.6 10^3/uL (0.1-1.4); ABSOLUTE NEUTROPHILS# (MANUAL) 16.7 10^3/uL (1.7-8.2); BASOPHILS % (MANUAL) 0 % (0-2); EOSINOPHILS % (MANUAL) 0 % (0-6); LYMPHOCYTES % (MANUAL) 6 % (13-45); MONOCYTES % (MANUAL) 3 % (3-13); SEGMENTED NEUTROPHILS % (MAN) 91 % (42-78); TOTAL CELLS COUNTED 100; TOXIC GRANULATION 2+
[2017-09-07 07:37] LABS: ANISOCYTOSIS SLIGHT; PLATELET COMMENT ADEQUATE; POLYCHROMASIA SLIGHT
--- NOTE | 2017-09-07 10:02 | EKG REPORT ---
SEVERITY:- ABNORMAL ECG - SINUS RHYTHM INFERIOR INFARCT, AGE INDETERMINATE CONSIDER POSTERIOR WALL INVOLVEMENT LATERAL LEADS ARE ALSO INVOLVED PROLONGED QT INTERVAL : Confirmed by: Malcom Tee 07-Sep-2017 10:01:50
== END 2017-09-07 13:40 | disposition expired ==
LOC: ER 06:11
DX: A41.9 Sepsis, unspecified organism (principal); R65.21 Severe sepsis with septic shock; J18.9 Pneumonia, unspecified organism; K62.5 Hemorrhage of anus and rectum; E11.65 Type 2 diabetes mellitus with hyperglycemia; F03.90 Unspecified dementia, unspecified severity, without behavioral disturbance, psychotic disturbance, mood disturbance, and anxiety; I10 Essential (primary) hypertension; Z79.82 Long term (current) use of aspirin; Z66 Do not resuscitate
CPT/HCPCS: 93005; 99285; 96361; 96374; 96375; 86900; 86901; 36415; 87040; 86870; 86850; 85025; 80053; 82803; 83605; 86902; 71045; 93010; J3010; J2270; J2060; J7030